=== PATIENT | male | born 2000 ===

== ENCOUNTER 2023-01-09 16:07 | Emergency (ER) | payer SELFPAY ==
--- NOTE | ~2023-01-09 | XR_ITS ---
EXAMINATION: XR KNEE, LEFT CLINICAL INFORMATION: Pain COMPARISON: None available. TECHNIQUE: Four views of the left knee. FINDINGS: There is a bony defect in the medial femoral condyle roughly 1.5 x 0.7 cm concerning for possible osteochondral injury. There is a concern for loose bodies within the joint adjacent to the lateral tibial spine. No dislocation. No significant joint effusion. There are 2 rounded calcified structure abutting the posterior wall of the quadriceps tendon. XR/XR knee LT 4V IMPRESSION: * There is a bony defect in the medial femoral condyle concerning for possible osteochondral injury. * There is a concern for possible loose bodies within the joint. * There are 2 rounded calcified structure abutting the posterior wall of the quadriceps tendon. * Recommend correlation with follow-up MRI.
[2023-01-09 16:31] VITALS: BP 142/89; PULSE 85; RESP 18; TEMP 36.8; O2SAT 100; BMI 28.8
--- NOTE | 2023-01-09 16:36 | ED.EXTPRO ---
HPI - Extremity Problem General Chief complaint: Extremity Injury, Lower <ISAAC Ospina - Last Filed: 01/09/23 16:37> Stated complaint: Leg pain <ISAAC Ospina - Last Filed: 01/09/23 16:37> Time Seen by Provider: 01/09/23 19:26 <ISAAC Ospina - Last Filed: 01/09/23 16:37> Source: patient, RN notes reviewed and environmental field services technician <Luther Waters - Last Filed: 01/09/23 20:06> Mode of arrival: ambulatory <Luther Waters - Last Filed: 01/09/23 20:06> Limitations: language barrier <Luther Waters - Last Filed: 01/09/23 20:06> History of Present Illness HPI Narrative: 22-year-old male presents for evaluation of left knee pain. Patient reports he has had left knee pain for the last 5 or 6 years. this dates back to an injury he sustained while playing baseball he is able to walk but has pain in his left knee with walking the patient moved to the area approximately 2 weeks ago and has no local providers his pain is a 6/10 at worst patient denies any recent injuries <Luther Waters - Last Filed: 01/09/23 20:06> Related Data Home medications: Previous Rx's Medication Instructions Recorded acetaminophen 500 mg tablet 500 mg PO Q6H PRN pain #20 tabs 01/09/23 ibuprofen 600 mg tablet 600 mg PO Q6H PRN pain #20 tabs 01/09/23 <ISAAC Ospina - Last Filed: 01/09/23 16:37> Allergies/Adverse reactions: Allergies Allergy/AdvReac Type Severity Reaction Status Date / Time No Known Allergies Allergy Verified 01/09/23 16:35 <ISAAC Ospina - Last Filed: 01/09/23 16:37> Review of Systems Musculoskeletal: Musculoskeletal: Reports arthralgias, Reports joint swelling and Reports limited range of motion <Luther Waters - Last Filed: 01/09/23 20:06> PMFSH Social History Social History: Social History Advance Directives: No Advance Directives Information Provided: No <ISAAC Ospina - Last Filed: 01/09/23 16:37> Physical Exam Vital Signs: Vital Signs: Last Vital Signs Temp 98.3 F 01/09/23 16:31 Pulse 85 01/09/23 16:31 Resp 18 01/09/23 16:31 BP 142/89 H 01/09/23 16:31 Pulse Ox 100 01/09/23 16:31 O2 Del Method Room Air 01/09/23 16:31 BMI result Body Mass Index 28.8 <ISAAC Ospina - Last Filed: 01/09/23 16:37> Vital Signs: Last Vital Signs Temp 98.3 F 01/09/23 16:31 Pulse 85 01/09/23 16:31 Resp 18 01/09/23 16:31 BP 142/89 H 01/09/23 16:31 Pulse Ox 100 01/09/23 16:31 O2 Del Method Room Air 01/09/23 16:31 BMI result Body Mass Index 28.8 <Luther Waters - Last Filed: 01/09/23 20:06> Const: General: healthy appearing, comfortable, no acute distress, alert and awake <Luther Waters - Last Filed: 01/09/23 20:06> Nutritional Appearance: well nourished <Luther Waters - Last Filed: 01/09/23 20:06> Orientation/consciousness: patient oriented x3 <Luther Waters - Last Filed: 01/09/23 20:06> HEENT: Head: Yes normocephalic and Yes atraumatic <Luther Waters - Last Filed: 01/09/23 20:06> Throat: Yes posterior oropharynx normal <Luther Waters - Last Filed: 01/09/23 20:06> Eyes: Eyelids: Yes eyelids normal <Luther Waters - Last Filed: 01/09/23 20:06> Conjunctivae: conjunctivae normal <Luther Waters - Last Filed: 01/09/23 20:06> Sclerae: sclerae normal <Luther Waters - Last Filed: 01/09/23 20:06> Corneas: corneas normal <Luther Waters - Last Filed: 01/09/23 20:06> Pupils: Equal, round and reactive pupils present <Luther Waters - Last Filed: 01/09/23 20:06> EOM: EOMs intact bilaterally <Luther OChristiano - Last Filed: 01/09/23 20:06> Skin: General skin exam: no rashes or lesions noted and elasticity normal <Lutherronny Bensony - Last Filed: 01/09/23 20:06> Neuro: General: patient oriented x3 <Luther OChristiano - Last Filed: 01/09/23 20:06> Cranial nerves: Yes CN's II-XII intact bilaterally, Yes Equal, round and reactive pupils present and Yes Bilaterally intact EOM present <Luther OStanfield - Last Filed: 01/09/23 20:06> Cognition (Neuro): normal cognition <Luther OStanfield - Last Filed: 01/09/23 20:06> Extrem: Other: no significant abnormality to the left knee with inspection. No edema, no skin changes. The patient is tender to palpation of the anterior left knee. The patellar tendon is palpable. No laxity with anterior drawer testing, negative valgus/varus strain. No calf tenderness, negative Homans sign <Luther OChristiano Last Filed: 01/09/23 20:06> Course Course Course Narrative: RME - 22 y/o [place]an speaking male who just moved here from the [facility] [place] presents to the ER for evaluation of acute on chronic left knee pain. He has had pain for the last 5 years. Worse now. He is able to ambulate, flex and extend the joint. No providers here in the [place]. Plan: XR knee, refer to PCP and ortho <ISAAC Ospina - Last Filed: 01/09/23 16:37> Medical Decision Making Medical Decision Making MDM Narrative: x-ray left knee shows a possible osteochondral injury and possible bony fragment within the left knee joint space. This was discussed with the patient and mother using a personnel quality assurance auditor, he will be referred to orthopedics <Luther Waters - Last Filed: 01/09/23 20:06> Differential Diagnosis Left knee pain Arthritis Knee fracture Banuelos's cyst Patellar tendon rupture <Luther Waters - Last Filed: 01/09/23 20:06> Independent Interpretation I performed an independent interpretation of an: Plain X-Ray (IMPRESSION: * There is a bony defect in the medial femoral condyle concerning for possible osteochondral injury. * There is a concern for possible loose bodies within the joint. * There are 2 rounded calcified structure abutting the posterior wall of the quadriceps tendon. * Recommend co) <Luther Waters - Last Filed: 01/09/23 20:06> Discharge Plan Discharge Clinical Impression: Acute pain of left knee <ISAAC Ospina - Last Filed: 01/09/23 16:37> Patient Disposition: Home, Self-Care <ISAAC Ospina - Last Filed: 01/09/23 16:37> Instructions: Knee Pain (ED) <ISAAC Ospina - Last Filed: 01/09/23 16:37> Additional Instructions: your left knee x-ray was abnormal. There is a possible bony injury and there is a small piece loose body within the joint as well as calcified area of the quadriceps tendon. these findings are likely the explanation for your knee pain. You will need to follow-up with orthopedics at the number provided <ISAAC Ospina - Last Filed: 01/09/23 16:37> Prescriptions: New ibuprofen 600 mg tablet 600 mg PO Q6H PRN (Reason: pain) Qty: 20 0RF acetaminophen 500 mg tablet 500 mg PO Q6H PRN (Reason: pain) Qty: 20 0RF <ISAAC Ospina - Last Filed: 01/09/23 16:37> Referrals: Adam Ramos MD [Physician] - (abnormal left knee x-ray from remote injury) <ISAAC Ospina - Last Filed: 01/09/23 16:37>
== END 2023-01-09 20:16 | disposition home or self-care (01) ==
PROVIDERS: Emergency Provider Internal Medicine
DX: M25.562 Pain in left knee (principal); R93.6 Abnormal findings on diagnostic imaging of limbs
CPT/HCPCS: 73564; 99282; 99283

== ENCOUNTER 2023-02-11 08:36 | Outpatient (REF) | payer MEDICAID, SELFPAY ==
--- NOTE | ~2023-02-11 | XR_ITS ---
EXAMINATION: XR KNEE, LEFT XR KNEE AP STANDING CLINICAL INFORMATION: Bilateral knee pain. COMPARISON: Left knee radiographs dated 01/09/2023. TECHNIQUE: An axial view of the left knee was obtained. AP bilateral standing view of the knees was obtained. FINDINGS: Bony alignment and mineralization are normal. The bilateral lateral and medial joint space compartments and the left patellofemoral compartment are well-maintained. The previously noted osteochondral defect of the left medial femoral condyle is redemonstrated. As well, an osteochondral defect is noted of the right medial femoral condyle. No dislocation is seen. There is no foreign body noted. XR/XR knee LT 1V IMPRESSION: Findings are consistent with osteochondral defects of the bilateral medial femoral condyles. A lateral view of the right knee may be helpful to evaluate for a potential loose body. As well, consider further evaluation with MRI.
--- NOTE | ~2023-02-11 | XR_ITS ---
EXAMINATION: XR KNEE, LEFT XR KNEE AP STANDING CLINICAL INFORMATION: Bilateral knee pain. COMPARISON: Left knee radiographs dated 01/09/2023. TECHNIQUE: An axial view of the left knee was obtained. AP bilateral standing view of the knees was obtained. FINDINGS: Bony alignment and mineralization are normal. The bilateral lateral and medial joint space compartments and the left patellofemoral compartment are well-maintained. The previously noted osteochondral defect of the left medial femoral condyle is redemonstrated. As well, an osteochondral defect is noted of the right medial femoral condyle. No dislocation is seen. There is no foreign body noted. XR/XR knee standing BI IMPRESSION: Findings are consistent with osteochondral defects of the bilateral medial femoral condyles. A lateral view of the right knee may be helpful to evaluate for a potential loose body. As well, consider further evaluation with MRI.
== END 2023-02-11 08:37 | disposition home or self-care (01) ==
LOC: HO.HOSX 08:36
PROVIDERS: Visit Provider Physician Assistant
DX: M23.92 Unspecified internal derangement of left knee (principal)
CPT/HCPCS: 20610; 73560; 73565; 99202

== ENCOUNTER 2023-05-10 18:33 | Outpatient (REF) | payer MEDICAID, SELFPAY ==
--- NOTE | ~2023-05-10 | MR_ITS ---
EXAMINATION: MR KNEE WITHOUT CONTRAST, LEFT CLINICAL INFORMATION: Left knee pain and swelling. Pain with walking. Evaluate for internal derangement. COMPARISON: Left knee radiographs dated 02/11/2023. TECHNIQUE: MRI of the knee without contrast was performed using routine sequences on a high-field scanner. FINDINGS: MENISCI: Medial Meniscus: Intact Lateral Meniscus: Intact LIGAMENTS: Cruciate: Intact Collateral: Intact EXTENSOR MECHANISM: Intact ARTICULAR CARTILAGE/BONE: Patellofemoral Compartment: Intact articular cartilage. Medial Compartment: At the central aspect of the weight-bearing medial femoral condyle there is an osteochondral lesion measuring approximately 3.2 x 1.9 cm (AP x ML) with a depth of 0.8 cm. There is a central osteochondral fragment measuring up to 1.1 x 1.0 cm (AP x ML). There is overlying articular cartilage loss with underlying linear fluid signal and mild subchondral cystic change. Small marginal osteophytes. Lateral Compartment: Intact articular cartilage. JOINT FLUID AND BURSAE: Trace joint effusion. Ossified loose bodies within the suprapatellar joint recess measuring up to 1.1 and 1.1 cm. Posterior ossified loose body adjacent to the posterior cruciate ligament measuring up to 1.0 cm. Ossified loose body posterosuperior to the medial femoral condyle measuring up to 1.1 cm. MR/MR knee LT wo con IMPRESSION: 1. Osteochondral lesion at the central aspect of the weight-bearing medial femoral condyle measuring up to 3.2 x 1.9 cm (AP x ML) with a central osteochondral fragment measuring up to 1.1 cm. Overlying articular cartilage loss with underlying subchondral cystic change. Nondisplaced, unstable central osteochondral fragment measuring up to 1.1 cm. 2. Trace joint effusion with multiple ossified loose bodies measuring up to 1.1 cm. 3. No acute meniscal or ligamentous injury.
== END 2023-05-10 18:34 | disposition home or self-care (01) ==
LOC: HO.MRI 18:33
PROVIDERS: Visit Provider Physician Assistant
DX: M23.92 Unspecified internal derangement of left knee (principal)
CPT/HCPCS: 73721

== ENCOUNTER 2023-06-17 11:49 | Outpatient (AMB) | payer MEDICAID, SELFPAY ==
--- NOTE | 2023-06-17 11:52 | MHC.OFFVIS ---
Intake Vital Signs 06/17/23 11:53 Height 5 ft 5 in Weight 172 lb BMI 28.6 Intake Visit Reasons: ov-Internal derangement of left knee Intake Note: Jennie a 22 year old male who presents today with mother for an MRI review of left knee. Allergies No Known Allergies Allergy (Verified 06/17/23 11:54) HPI ov-Internal derangement of left knee HPI Details 22-year-old male who returns to the office today for an MRI review of left knee. He continues to have pain in his left knee which makes him unable to perform daily activities. [facility] Social History Patient Tobacco Use Status: Never used Tobacco Current occupational status: unemployed Current occupation: right hand dominant Review of Systems Const All systems reviewed & are unremarkable except as noted in HPI and below Physical Exam Vital Signs: BMI result Body Mass Index 28.6 Const General: cooperative, healthy appearing, comfortable, no acute distress, well developed and alert Orientation/consciousness: patient oriented x3 HEENT Head: Yes normal to inspection, Yes normocephalic and Yes atraumatic Eyes General: appearance normal, both eyes and all related structures Resp Effort & Inspection: normal respiratory effort and able to speak in complete sentences Cardio Rate: regular rate Peripheral pulses: Peripheral pulses 2+ throughout GI Palpation (GI): Soft to palpation Skin Lesions: no lesions Rashes: no rashes Neuro General: patient oriented x3 Extrem Other: Left knee skin intact, moderate joint effusion. Tenderness along the medial joint line. ROM full with crepitus. Negative steinmans. No ligamentous laxity. NVI. Results Reviewed Results Reviewed: MRI left knee IMPRESSION: 1. Osteochondral lesion at the central aspect of the weight-bearing medial femoral condyle measuring up to 3.2 x 1.9 cm (AP x ML) with a central osteochondral fragment measuring up to 1.1 cm. Overlying articular cartilage loss with underlying subchondral cystic change. Nondisplaced, unstable central osteochondral fragment measuring up to 1.1 cm. 2. Trace joint effusion with multiple ossified loose bodies measuring up to 1.1 cm. 3. No acute meniscal or ligamentous injury. Assessment & Plan Assessment & Plan (1) Internal derangement of left knee: Code(s): M23.92 - Unspecified internal derangement of left knee Plan We discussed the MRI results. The patient does feels as though he has symptoms which limit his activities when he is not wearing the brace. I offered an appointment with Dr. Ramos to discuss further options which include surgical intervention which they would like to pursue. Therefore, an appointment was made and they will follow-up as planned. Patient Instructions: Scribed for Carlos Alberto Rubio PA-C, by Cuba Schulte medical transport specialist, on 06/17/2023 at 11:30 AM SHERI. Carlos Alberto Lang PA-C, have personally reviewed and agree with the information entered by the scribe. Coding Level of Care Code Est Pt Level 3 (62558) Diagnoses Internal derangement of left knee M23.92
[2023-06-17 11:53] VITALS: BMI 28.6
== END 2023-06-17 11:59 | disposition home or self-care (01) ==
LOC: HO.HOS 11:49
PROVIDERS: Visit Provider Physician Assistant
DX: M23.92 Unspecified internal derangement of left knee (principal)
CPT/HCPCS: 99213

== ENCOUNTER → 2023-06-17 11:49 | Outpatient (BNVA) | payer MEDICAID, SELFPAY | PROVIDERS: Visit Provider Physician Assistant | DX: M23.92 Unspecified internal derangement of left knee (principal) | CPT/HCPCS: 99212 ==

== ENCOUNTER 2023-07-01 13:26 | Outpatient (AMB) | payer MEDICAID, SELFPAY ==
--- NOTE | 2023-07-01 13:29 | MHC.OFFVIS ---
Intake Intake Visit Reasons: Left knee discuss MRI findings ? surgery/Per TM Intake Note: This is a 22 year old male who presents for an MRI review of his left knee. Allergies No Known Allergies Allergy (Verified 07/01/23 13:31) Medication List - Last Reconciled 07/01/23 by Kiya Welch RN acetaminophen 500 mg PO Q6H PRN ibuprofen 600 mg PO Q6H PRN HPI Left knee discuss MRI findings ? surgery/Per TM HPI Details Jennie is a 22 year old man who presents to discuss surgery for his left knee. He has been seen by ISAAC Rubio, who reviewed his MRI, and referred him here to discuss treatment options. He has left knee pain. He describes swelling and pain that prevents him from playing sports or engaging in physical activity. He is here with his mom. They think he may have injured his knee playing baseball many years ago. This problem has been ongoing for years. He describes catching and locking. He describes his knee locking while bent and being unable to straighten it. This occurs regularly. [facility] Social History Patient Tobacco Use Status: Never used Tobacco Current occupational status: unemployed Current occupation: right hand dominant Review of Systems Const All systems reviewed & are unremarkable except as noted in HPI and below Physical Exam Const General: no acute distress, alert and awake Orientation/consciousness: patient oriented x3 HEENT Head: Yes normocephalic and Yes atraumatic Eyes EOM: EOMs intact bilaterally Resp Effort & Inspection: normal respiratory effort and able to speak in complete sentences Cardio Jugular venous distension: no JVD Skin General skin exam: turgor normal Rashes: no rashes Neuro General: patient oriented x3 Extrem Other: Moderate effusion Pain with terminal flexion Psych Appearance: grossly normal Affect: normal affect Attitude: cooperative Results Reviewed Results Reviewed: I personally reviewed relevant MR images 1. Osteochondral lesion at the central aspect of the weight-bearing medial femoral condyle measuring up to 3.2 x 1.9 cm (AP x ML) with a central osteochondral fragment measuring up to 1.1 cm. Overlying articular cartilage loss with underlying subchondral cystic change. Nondisplaced, unstable central osteochondral fragment measuring up to 1.1 cm. 2. Trace joint effusion with multiple ossified loose bodies measuring up to 1.1 cm. 3. No acute meniscal or ligamentous injury. Assessment & Plan Assessment & Plan (1) Osteochondral defect of femoral condyle: Code(s): M95.8 - Other specified acquired deformities of musculoskeletal system Plan: This is a 22 year old man with an osteochondral lesion of the left medial femoral condyle. He has pain with daily activity as well as swelling. He has a loose body in his knee and mechanical symptoms. I recommend knee arthroscopy for removal of loose body. I will also evaluate the cartilage lesion but cartilage repair will not be performed during this procedure. I discussed the risks, benefits, and alternatives including, but not limited to, the risk of pain, infection, stiffness, need for further surgery as well as potential medical complications such as blood clots, pulmonary embolism and cardiac complications. I discussed the recovery timeline and process as well as the importance of PT. Jennie is a good candidate for this surgery, and he wishes to proceed with this decision. He will speak with Myra to schedule this procedure. Plan Scribed for Adam Ramos MD by Gregory Sawant, medical billing specialist, on 07/01/23 at 1:45 PM, EST. Coding Level of Care Code Est Pt Level 4 (82337) Diagnoses Osteochondral defect of femoral condyle M95.8
== END 2023-07-01 13:58 | disposition home or self-care (01) ==
LOC: HO.HOS 13:26
PROVIDERS: Visit Provider Orthopaedic Surgery
DX: M95.8 Other specified acquired deformities of musculoskeletal system (principal); M93.262 Osteochondritis dissecans, left knee
CPT/HCPCS: 99214

== ENCOUNTER → 2023-07-01 13:26 | Outpatient (BNVA) | payer MEDICAID, SELFPAY | PROVIDERS: Visit Provider Orthopaedic Surgery | DX: M95.8 Other specified acquired deformities of musculoskeletal system (principal) | CPT/HCPCS: 99212 ==

== ENCOUNTER 2023-09-19 10:59 | Outpatient (AMB) | payer MEDICAID, SELFPAY ==
--- NOTE | 2023-09-19 11:07 | MHC.OFFVIS ---
Intake Vital Signs 09/19/23 11:08 Height 5 ft 5 in Weight 172 lb BMI 28.6 Intake Visit Reasons: Pre-Lt Knee 10/02 NE Intake Note: Jennie is a 23 year old male who presents today for a pre op appoitnemtn for his left knee 10/02/22 NE. Allergies No Known Allergies Allergy (Verified 09/19/23 11:08) HPI Pre-Lt Knee 10/02 NE HPI Details 23-year-old right hand dominant male, who is American speaking, presents in the office today for his preoperative history and physical exam prior to a left knee arthroscopy to be performed on 10/02/[address] Adam Ramos. Patient has no known allergy history. Patient is currently taking, as follows: -Acetaminophen 500 mg PO Q6H PRN -Ibuprofen 600 mg PO Q6H PRN Patient has no significant medical history. Patient has no known surgical history. [facility] Medical History (Updated 07/15/23 @ 10:45 by Hellen Hernandez RN) No pertinent past medical history Surgical History (Updated 07/15/23 @ 10:45 by Hellen Hernandez RN) No pertinent past surgical history Social History Patient Tobacco Use Status: Never used Tobacco Current occupational status: unemployed Current occupation: right hand dominant Review of Systems Const All systems reviewed & are unremarkable except as noted in HPI and below Physical Exam Vital Signs: BMI result Body Mass Index 28.6 Const General: cooperative, healthy appearing, comfortable, no acute distress, well developed, alert and awake Orientation/consciousness: patient oriented x3 HEENT Head: Yes normal to inspection, Yes normocephalic and Yes atraumatic Eyes General: appearance normal, both eyes and all related structures EOM: EOMs intact bilaterally Neck Neck: Yes normal visual inspection and Yes no lymphadenopathy Resp Effort & Inspection: normal respiratory effort and able to speak in complete sentences Cardio Jugular venous distension: no JVD Rate: regular rate Peripheral pulses: Peripheral pulses 2+ throughout GI Inspection: Yes normal to inspection Palpation (GI): Soft to palpation Skin General skin exam: no rashes or lesions noted Rashes: no rashes Neuro General: patient oriented x3 Extrem Other: Moderate effusion Pain with terminal flexion Left knee skin intact Psych Appearance: grossly normal Mental Status: mental status grossly normal Affect: normal affect Attitude: cooperative Assessment & Plan Assessment & Plan (1) Osteochondral defect of femoral condyle: Code(s): M95.8 - Other specified acquired deformities of musculoskeletal system Plan Mr. Fernandes is a 23-year-old right hand dominant male, who is American speaking, presents in the office today for his preoperative history and physical exam prior to a left knee arthroscopy to be performed on 10/02/[address] Adam Ramos. Patient has no known allergy history. Patient is currently taking, as follows: -Acetaminophen 500 mg PO Q6H PRN -Ibuprofen 600 mg PO Q6H PRN Patient has no significant medical history. Patient has no known surgical history. I discussed in detail the procedure and what to expect pre and post operatively. We discussed the risks, benefits and alternatives to the surgery as well as the rehabilitation course. The risks; which include, but are not limited to infection, bleeding, nerve injury, ongoing pain, swelling, and stiffness, perioperative risk of injury to bones and soft tissues, and blood clots. I have answered all questions and with their understanding they have consented to move forward with a left knee arthroscopy to be performed on 10/02/[address] Adam Ramos. Follow up will be at the post operative appointment on 10/08/2023 at 9:45 am, or sooner if needed. Post operative medications was sent to the pharmacy, Hydrocodone-acetaminophen 5-325 (Percocet) PO Q8H PRN, quantity 21 tabs for 7 days, while in the office today. The patient was instructed that he should obtain the prescription prior to surgery but should not consume until after the procedure; as these should only be taken for post operative pain management. Should the patient take these medications prior to surgery a refill will not be sent to the pharmacy until their scheduled refill date. Medications: New hydrocodone-acetaminophen 5-325 mg Partial Fill upon patient request. 1 tab PO Q8H PRN 21 tabs 0RF pain (scale score 4-6) 7 days Patient Instructions: Scribed for Rhonda Vallecillo PA-C by Jacque Blackburn emergency medical service coordinator, on 09/19/2023 at 11:03 am, EST. Coding Level of Care Code Global (01974) Diagnoses Osteochondral defect of femoral condyle M95.8
[2023-09-19 11:08] VITALS: BMI 28.6
== END 2023-09-19 11:14 | disposition home or self-care (01) ==
PROVIDERS: Visit Provider Physician Assistant
DX: M95.8 Other specified acquired deformities of musculoskeletal system (principal)
CPT/HCPCS: 99024

== ENCOUNTER → 2023-09-19 10:59 | Outpatient (BNVA) | payer MEDICAID, SELFPAY | PROVIDERS: Visit Provider Physician Assistant | DX: M95.8 Other specified acquired deformities of musculoskeletal system (principal) | CPT/HCPCS: 99212 ==

== ENCOUNTER 2023-10-02 08:32 | Day surgery (SDC) | payer MEDICAID, SELFPAY ==
[2023-07-15 10:44] VITALS: BMI 28.6
--- NOTE | 2023-07-16 10:00 | HO.ANESPROP2 ---
HPI - Anesthesia Eval Consult details Narrative: 23yo M for Left Knee Arthroscopy and removal of loose body PMFSH Active Problems Active Problems: All Active Problems (Updated 07/15/23 @ 10:45 by Hellen Hernandez RN) Osteochondral defect of femoral condyle (Acute) Internal derangement of left knee (Acute) Past Medical History Medical History (Updated 07/15/23 @ 10:45 by Hellen Hernandez RN) No pertinent past medical history Surgical History Surgical History (Updated 07/15/23 @ 10:45 by Hellen Hernandez RN) No pertinent past surgical history Social History Social History Patient Tobacco Use Status: Never used Tobacco Current occupational status: unemployed Current occupation: right hand dominant Meds Allergies Allergy/AdvReac Type Severity Reaction Status Date / Time No Known Allergies Allergy Verified 07/01/23 13:31 Exam Exam Date and Time: July 16, 2023 1000 Height,Weight and Vital Signs: Height 5 ft 5 in Weight 78.018 kg Assessment and Plan Assessment Anesthesia Assessment: Chart Reviewed
--- NOTE | 2023-07-17 08:27 | PC.NURSE ---
called patient left message no show
[2023-09-30 07:27] VITALS: BMI 28.6
--- NOTE | 2023-10-01 09:29 | HO.ANESPROP2 ---
HPI - Anesthesia Eval Consult details Narrative: 23yo M for Left Knee Arthroscopy and removal of loose body PMFSH Active Problems Active Problems: All Active Problems (Updated 07/15/23 @ 10:45 by Hellen Hernandez RN) Osteochondral defect of femoral condyle (Acute) Internal derangement of left knee (Acute) Past Medical History Medical History (Updated 07/15/23 @ 10:45 by Hellen Hernandez RN) No pertinent past medical history Surgical History Surgical History (Updated 07/15/23 @ 10:45 by Hellen Hernandez RN) No pertinent past surgical history Social History Social History Patient Tobacco Use Status: Never used Tobacco Advance Directives: No Advance Directives Information Provided: Yes Current occupational status: unemployed Current occupation: right hand dominant Meds Allergies Allergy/AdvReac Type Severity Reaction Status Date / Time No Known Allergies Allergy Verified 09/19/23 11:08 Exam Height,Weight and Vital Signs: Height 5 ft 5 in Weight 78.018 kg Assessment and Plan Assessment Anesthesia Assessment: Chart Reviewed
[2023-10-02 10:32] VITALS: BMI 32.4
[2023-10-02 11:02] VITALS: PULSE 93; RESP 16; TEMP 36.8; O2SAT 99
[2023-10-02] MEDS: Lactated Ringers 1,000 ML 100 ML IVCONT (11:14)
--- NOTE | 2023-10-02 11:39 | MHC.SHP ---
Pre-Procedural Eval Section A - 24 Hr Update-Section A only Date of Service: 10/02/23 The patient is an INPATIENT: No Changes since office visit: No Cold of Flu in the past 2 weeks, No New Medical Problems, No Changes in Medication and No Patient answered all questions The patient has been examined within 24 hours of the surgical procedure. The History & Physical has been completed within 30 days and I have reviewed it.: Yes Section B - Complete if H&P > 30 days Chief Complaint: Other specified acquired deformities of musculoske Allergies: Allergies Allergy/AdvReac Type Severity Reaction Status Date / Time No Known Allergies Allergy Verified 09/19/23 11:08 Plan I have reviewed the history and physical and performed a pertinent physical examination on my patient. No changes have occurred unless specified. Time Spent With Patient Time: Total time managing care of this patient today ____ minutes.
--- NOTE | 2023-10-02 13:34 | ECG_ITS ---
Test Reason : PRE OP Blood Pressure : / mmHG Vent. Rate : 099 BPM Atrial Rate : 099 BPM P-R Int : 122 ms QRS Dur : 086 ms QT Int : 338 ms P-R-T Axes : 052 062 044 degrees QTc Int : 433 ms Sinus rhythm with frequent Premature ventricular complexes Otherwise normal ECG No previous ECGs available Referred By: Almaz Mcginnis Electronically Signed By:SUMAYA OSUNA MD
--- NOTE | 2023-10-02 13:40 | P.CONAN_ITS ---
[facility] Active Problems Active Problems: All Active Problems (Updated 10/02/23 @ 10:43 by Luz Marina Gallegos RN) Osteochondral defect of femoral condyle (Acute) Internal derangement of left knee (Acute) Past Medical History Functional capacity: independent ambulation Family History Family history of problems with anesthesia: No Surgical History Surgical History History of umbilical hernia repair History of Problems with Anesthesia: Yes Social History Social History Patient Tobacco Use Status: Never used Tobacco Use of substances other than those prescribed or required for medical reasons: Yes Are you DNR?: No Advance Directives: No Advance Directives Information Provided: Yes Current occupational status: unemployed Current occupation: right hand dominant Meds Allergies Allergy/AdvReac Type Severity Reaction Status Date / Time No Known Allergies Allergy Verified 09/19/23 11:08 Active Medications: Current Medications Lactated Ringer's (Lr) 1,000 mls @ 100 mls/hr IVCONT .Q10H ANJU Last Admin: 10/02/23 11:14 Dose: 100 mls/hr Exam Height,Weight and Vital Signs: Height 5 ft 5 in Weight 88.451 kg Last Vital Signs Temp 98.2 F 10/02/23 11:02 Pulse 93 10/02/23 11:02 Resp 16 10/02/23 11:02 Pulse Ox 99 10/02/23 11:02 O2 Del Method Room Air 10/02/23 11:02 Airway Mallampati Class: II TM Dist: >3cm Neck ROM: Full Heart: pt. is having PVCs occasionally but at 13:30 I noticed bigeminies frquently. pt. has no CP,N or Vomiting or SOB, only palpitation.12 lead ECG was ordered. Lungs: CTA Assessment and Plan Assessment Anesthesia Assessment: Anesthesia Plan Discussed Final Anesthetic Review Family History of Problems with Anesthesia: No History of Problems with Anesthesia: Yes NPO: Yes ASA Class: II Final Preanesthetic Review: Meds/Allgs Chart Reviewed, Consent Obtained/Reviewed and Anes Risks/Benef Reviewed Patient Risk: Low Procedure Risk: Low Anesthetic Plan Anesthetic Plan: GA Disposition: Standard PACU
--- NOTE | 2023-10-02 13:51 | PC.NURSE ---
ekg performed because patient was having frequent pvcs. denies cp. denies dizziness. md sharif by bedside speaking to patient.
[2023-10-02 14:25] VITALS: BP 127/76; PULSE 107; RESP 16; TEMP 36.1; O2SAT 100
[2023-10-02 14:40] VITALS: BP 120/73; PULSE 101; RESP 16; TEMP 36.6; O2SAT 99
--- NOTE | 2023-10-02 14:50 | HO.POSTANES ---
Post Anesthesia Evaluation Post Anesthesia Evaluation Date of Service: 10/02/23 Vital Signs: Vital Signs Temp Pulse Resp BP Pulse Ox O2 Del Method 10/02/23 14:40 97.9 F 101 H 16 120/73 99 Room Air 10/02/23 14:25 97 F 107 H 16 127/76 100 10/02/23 11:02 98.2 F 93 16 99 Room Air Comments: case cancelled
--- NOTE | 2023-10-02 15:40 | PC.NURSE ---
patient/mother encouraged to seek diet technician registered as per anesthesia and discharged as per md. Ramos.
== END 2023-10-02 15:39 | disposition home or self-care (01) ==
LOC: HO.SSS 08:32
PROVIDERS: Visit Provider Orthopaedic Surgery
PROC: (CPT 29870; principal; 2023-10-02 12:30)
DX: M93.262 Osteochondritis dissecans, left knee (principal); Z53.09 Procedure and treatment not carried out because of other contraindication; I49.3 Ventricular premature depolarization
CPT/HCPCS: 29874; 93005; J0171; J0690; J1100; J2250; J2405; J2704; J2795; J3010

== ENCOUNTER → 2023-10-02 13:34 | Outpatient (BNV) | payer MEDICAID, SELFPAY | PROVIDERS: Visit Provider Internal Medicine Cardiovascular Disease | DX: I49.3 Ventricular premature depolarization (principal) | CPT/HCPCS: 93010 ==

== ENCOUNTER 2024-02-25 14:39 | Emergency (ER) | payer MEDICAID, OTHER, SELFPAY ==
[2024-02-25 14:47] VITALS: BP 137/87; PULSE 74; RESP 20; TEMP 37.2; O2SAT 99; BMI 28.1
--- NOTE | 2024-02-25 14:48 | ED_ITS ---
HPI - General Adult General Chief complaint: General Medical Stated complaint: Sent by Dr for EKG & knee pain Time Seen by Provider: 02/25/24 15:03 Source: patient and cigar bander Mode of arrival: ambulatory Limitations: language barrier History of Present Illness ED Provider: [facility] narrative: Patient is a 23-year-old male with history of osteochondral defect of femoral condyle, internal derangement of left knee referred to the ED by [facility] for EKG. States he was scheduled to have knee surgery in September and was noted to have PVCs and bigeminy. [facility] has not followed up sooner because of insurance issues. Now trying to move forward with his knee surgery and states he needs an EKG, clinic would not take his insurance to do the EKG. He denies any chest pain, palpitations or shortness of breath. Denies any changes in left knee pain. Has not called Dr. Epstein. GALLEGOS complaint: abnormal EKG Onset (ago): month(s) Related Data Previous Rx's ?Medication ?Instructions ?Recorded acetaminophen 500 mg tablet 500 mg PO Q6H PRN pain #20 tabs 01/09/23 ibuprofen 600 mg tablet 600 mg PO Q6H PRN pain #20 tabs 01/09/23 hydrocodone 5 mg-acetaminophen 325 1 tab PO Q8H PRN pain (scale score 09/19/23 mg tablet 4-6) 7 days #21 tabs Allergies Allergy/AdvReac Type Severity Reaction Status Date / Time No Known Allergies Allergy Verified 02/25/24 14:54 Review of Systems Review of Systems: as per hPI Yes all other systems are reviewed and are negative Constitutional: Constitutional: Reports as per HPI [facility] Past Medical History Surgical History History of umbilical hernia repair Social History Social History Comment: case cancelled, no other counts necessary Patient Tobacco Use Status: Never used Tobacco Advance Directives: No Advance Directives Information Provided: No Do you have a plan to hurt others: No Plan Current occupational status: unemployed Current occupation: right hand dominant Physical Exam ED Vital Signs: Vital Signs - 24 hr 02/25/24 14:47 Temperature 98.9 F Pulse Rate 74 Respiratory Rate 20 Blood Pressure 137/87 Pulse Oximetry 99 Oxygen Delivery Method Room Air BMI result Body Mass Index 28.1 Vital signs have been reviewed and appear to be correct. Blood pressure normal. Heart rate normal. Respiratory rate normal. Temperature normal. Oxygen saturation normal. Const General: cooperative, healthy appearing and no acute distress Orientation/consciousness: oriented to person, oriented to place, oriented to time and patient oriented x3 Limitations: no limitations HENMT Head: Yes normocephalic and Yes atraumatic Ears: external ears normal General nose exam: Normal external nose present Face and sinus: Yes face symmetric Mouth: oropharynx normal and moist mucous membranes Throat: Yes uvula midline Eyes Pupils: Equal, round and reactive pupils present Neck Neck: Yes normal visual inspection and Yes supple Resp Effort & Inspection: normal respiratory effort and able to speak in complete sentences Auscultation: clear to auscultation bilaterally Cardio Rate: regular rate Rhythm: regular rhythm Heart sounds: S1 normal heart sound present and S2 normal heart sound present GI Palpation (GI): Soft to palpation and nontender Auscultation: normoactive bowel sounds General: Yes no CVA tenderness Back/Spine/Pelvis Back: no CVA tenderness Skin General skin exam: elasticity normal and turgor normal Neuro General: oriented to person, oriented to place, oriented to time, patient oriented x3, moves all extremities, no focal motor deficits and CN's II-XI intact bilaterally Cranial nerves: Yes Equal, round and reactive pupils present Cognition (Neuro): normal cognition Extrem General: Yes full ROM, Yes no pedal edema and Yes no calf tenderness Psych Mental Status: mental status grossly normal Affect: normal affect Thought process: Normal thought process present Medical Decision Making Medical Decision Making MDM Narrative: Patient is a 23-year-old male with history of osteochondral defect of femoral condyle, internal derangement of left knee referred to the ED by [facility] for EKG. On exam patient is awake, A+Ox3, VS WNL, afebrile, normal neurological exam without focal deficits, physical exam findings as above, without current complaints other than left knee pain which is chronic. Case discussed with Dr. Wayne, attending MD who advised to order EKG and refer patient to orthopedic office. Patient updated on plan and return precautions and is in agreement. Entire encounter interpreted by in-person planogrammer. Differential Diagnosis Differential Diagnoses: The differential diagnosis associated with the presentation includes cardiac arrhythmia, left knee pain Independent Interpretation I performed an independent interpretation of an: EKG (Normal sinus rhythm with sinus arrhythmia, rate 71 beats per minute, normal VT interval and QTC) External Record Review External record reviewed: Inpatient record, Office record and Outpatient record Discharge Plan Discharge Clinical Impression: Chronic pain of left knee Patient Disposition: Home, Self-Care Additional Instructions: You presented to the emergency department today for an EKG. Your EKG today showed normal sinus rhythm. Please follow-up with the orthopedic office. Return to the emergency department any new or worsening symptoms. Prescriptions: No Action ibuprofen 600 mg tablet 600 mg PO Q6H PRN (Reason: pain) Qty: 20 0RF acetaminophen 500 mg tablet 500 mg PO Q6H PRN (Reason: pain) Qty: 20 0RF hydrocodone-acetaminophen 5-325 mg tablet 1 tab PO Q8H PRN (Reason: pain (scale score 4-6)) 7 Days Qty: 21 0RF Rx Instructions: Partial Fill upon patient request. Referrals: [facility] [place] [facility] [Provider Group] Print Language: Indian
--- NOTE | 2024-02-25 14:56 | ECG_ITS ---
Test Reason : ABNORMAL EKG IN SEP Blood Pressure : / mmHG Vent. Rate : 071 BPM Atrial Rate : 071 BPM P-R Int : 112 ms QRS Dur : 084 ms QT Int : 350 ms P-R-T Axes : 056 054 044 degrees QTc Int : 380 ms Normal sinus rhythm with sinus arrhythmia Normal ECG When compared with ECG of 02-OCT-2023 13:40, Premature ventricular complexes are no longer Present QT has shortened Referred By: Cynthia Diamond Electronically Signed By:SUMAYA OSUNA MD
[2024-02-25 15:33] VITALS: BP 135/76; PULSE 68; RESP 18; TEMP 37; O2SAT 100
== END 2024-02-25 15:34 | disposition home or self-care (01) ==
PROVIDERS: Emergency Provider Emergency Medicine
DX: M25.562 Pain in left knee (principal); R94.31 Abnormal electrocardiogram [ECG] [EKG]
CPT/HCPCS: 93005; 99283

== ENCOUNTER → 2024-02-25 14:56 | Outpatient (BNV) | payer OTHER, SELFPAY | PROVIDERS: Emergency Provider Emergency Medicine; Visit Provider Internal Medicine Cardiovascular Disease | DX: I49.9 Cardiac arrhythmia, unspecified (principal) | CPT/HCPCS: 93010 ==

== ENCOUNTER 2024-03-24 12:33 | Outpatient (AMB) | payer OTHER, SELFPAY ==
--- NOTE | 2024-03-24 12:10 | A.OFFPC_ITS ---
Vital Signs 03/24/24 12:11 Height 5 ft 8 in Weight 178 lb BMI 27.1 BP 108/64 Blood Pressure Location Rt brachial Position Sitting Pulse 67 Pulse Source Pulse Oximeter Pulse Oximetry (%) 99 Oxygen Delivery Method Room Air Intake Visit Reasons: Establish Care Intake Note: Patient is here to establish care and had concerns for his left knee and his need for surgery. Patient reports he was playing baseball and injured his knee during the sport. Patient was told he would need surgery for his knee by a orthopedics, but he would need a referral for this from his primary care provider. He was recommended to establish care with [facility]. Garbage Pick Up Man Required: Yes Garbage Pick Up Man Language: Health Claims Examiner Name: NATALY Information Interpreted: non-clinical & clinical Accompanied by: Self / Same As Patient Allergies No Known Allergies Allergy (Verified 03/24/24 12:24) Tobacco use date assessed: 03/24/24 Dental Screening Dental Screen Date: 03/24/24 Did you have a dental visit in the last 12 months?: No Did you have a dental problem in the last 6 months where you did not have access to dental care?: No Was dental information given to patient?: Yes HPI HPI Comments History of Present Illness Details 23 year old male with a past medical his tory of chronic knee pain presenting to establish [facility]. Patient has been following with orthopedics for left knee pain. He underwent left knee arthroscopy at [facility] earlier this year. He continues to require follow up. He needs insurance authorization for his visits Has no other concerns today. Denies any other chronic medical conditions. ROS CONSTITUTIONAL: Denies weight loss, fever and chills. HEENT: Denies changes in vision and hearing. RESPIRATORY: Denies SOB and cough. CV: Denies palpitations and CP GI: Denies abdominal pain, nausea, vomiting and diarrhea. : Denies dysuria and urinary frequency. MSK: Denies new myalgia and joint pain. SKIN: Denies rash and pruritus. NEUROLOGICAL: Denies headache PSYCHIATRIC: Denies recent changes in mood. PHYSICAL EXAM: GENERAL: Alert and oriented x 3. NAD EYES: EOMI. Anicteric. HENT: Moist mucous membranes. No scleral icterus. No cervical lymphadenopathy. LUNGS: Clear to auscultation bilaterally. CARDIOVASCULAR: Regular rate and rhythm. No murmur. No JVD. ABDOMEN: Soft, non-tender +bs EXTREMITIES: No edema. Non-tender. SKIN: No rashes or lesions. Warm. NEUROLOGIC: No focal neurological deficits. CN II-XII grossly intact PSYCHIATRIC: Cooperative. Appropriate mood and affect [facility] Medical History Internal derangement of left knee Osteochondral defect of femoral condyle Surgical History History of umbilical hernia repair Family History Other Family history unknown Social History Household Members: Family Housing: Apartment Alcohol intake: never Patient Tobacco Use Status: Former Tobacco user e-Cigarette/Vaping Use: Never Used Substance Use Type: Marijuana service: No Current occupational status: employed Current occupation: right hand [email or web address] Cognitive needs: No Hearing needs: No Vision needs: No Questionnaire PHQ-9 Over the last 2 weeks, how often have you been bothered by any of the following problems? 1. Little interest or pleasure in doing things: not at all 2. Feeling down, depressed, or hopeless: not at all 3. Trouble falling or staying asleep, or sleeping too much: several days 4. Feeling tired or having little energy: more than half the days 5. Poor appetite or overeating: more than half the days 6. Feeling bad about yourself - or that you are a failure or have let yourself or your family down: not at all 7. Trouble concentrating on things, such as reading the newspaper or watching television: not at all 8. Moving or speaking so slowly that other people could have noticed. Or the opposite - being so fidgety or restless that you have been moving around a lot more than usual: not at all 9. Thoughts that you would be better off or of hurting yourself in some way: not at all Total score: 5 Depression Screening Interpretation: Positive Depression Screening Follow-up: Declines treatment Depression Screening Done: Yes 51827 - PHQ-9 Billing: Yes Source: Developed by Drs. Darin Arredondo, Jordyn B.Clifton Smith and colleagues, with an educational get from [employer]. Thrive Questionnaire Date Thrive assessed: 03/24/24 I am a: Patient What is your living situation today?: I have a steady place to live Within the past 12 months, did the food you bought not last and you didn't have the money to get more?: Sometimes True Within the past 12 months, did you worry whether your food would run out before you got money to buy more?: Sometimes True Do you have trouble paying for medicines?: No Do you have trouble getting transportation to medical appointments?: No Do you have trouble paying your heating and electricity bill?: No Do you have trouble taking care of your child, family member or friend?: No Do you have trouble with day-to-day activities such as bathing, preparing meals, shopping, managing finances, etc.?: No Are you currently unemployed and looking for a job?: No Are you interested in more education?: Yes Please select the resources that you would like help with: Food, Transportation and Education Currently or been in a relationship where the following occur: No concerns reported THRIVE Score: 2 AUDIT C Alcohol Use Questionnaire (AUDIT-C) 1. How often do you have a drink containing alcohol?: Never 3. How often do you have six or more drinks on one occasion?: Never Total Score: 0 ELIANA-7 AMB Questionnaire ELIANA-7 Date ELIANA - 7 assessed: 03/24/24 Feeling nervous, anxious, or on edge: 0 = Not at all Not being able to stop or control worryin = Not at all Worrying too much about different things: 1 = Several days Trouble relaxin = Not at all Being so restless that it is hard to sit still: 0 = Not at all Becoming easily annoyed or irritable: 0 = Not at all Feeling afraid as if something awful might happen: 0 = Not at all Total ELIANA-7 score (0-4 normal; 5-9 mild; 10-14 moderate; 15-21 severe): 1 Source: Developed by Drs. Darin Arredondo, Clifton Romero and colleagues, with an educational get from [employer]. ELIANA-7 Assessment Billing ELIANA-7 Assessment Tool: ELIANA-7 Assessment 55199 Physical exam (Primary Care) Vital Signs: Last Vital Signs Pulse 67 03/24/24 12:11 BP 108/64 03/24/24 12:11 Pulse Ox 99 03/24/24 12:11 Oxygen Delivery Method Room Air 03/24/24 12:11 BMI result Body Mass Index 27.1 Tobacco/Smoking Status: Tobacco use Status Tobacco use date assessed 03/24/24 03/24/24 12:30 Patient Tobacco Use Status Former Tobacco user 03/24/24 12:30 e-Cigarette/Vaping Use Never Used 03/24/24 12:30 Depression Screening Interpretation: Positive Depression Screening Follow-up: Declines treatment Currently or been in a relationship where the following occur: No concerns reported Assessment and Plan Assessment & Plan (1) Internal derangement of left knee: Code(s): M23.92 - Unspecified internal derangement of left knee Plan: continue ortho follow up. Referral placed (2) Establishing care with new doctor, encounter for: Code(s): Z76.89 - Persons encountering health services in other specified circumstances Plan: 23 y/o to establish care. past medical, surgical, social and family history reviewed. Chart updated Orders: Referrals Orthopedics Referral M23.92 - Unspecified internal derangement of left knee, M95.8 - Other specified acquired deformities of musculoskeletal system Coding Level of Care Code New Pt Level 3 (44738) Diagnoses Internal derangement of left knee M23.92 Establishing care with new doctor, encounter for Z76.89 Additional Codes ELIANA-7 Assessment Billing - ELIANA-7 Assessment Tool: ELIANA-7 Assessment 18395 ([id number])
[2024-03-24 12:11] VITALS: BP 108/64; PULSE 67; O2SAT 99; BMI 27.1
== END 2024-03-24 12:50 | disposition home or self-care (01) ==
LOC: HO.HMGFM 12:33
PROVIDERS: Visit Provider Internal Medicine
DX: M23.92 Unspecified internal derangement of left knee (principal); Z76.89 Persons encountering health services in other specified circumstances
CPT/HCPCS: 99203

== ENCOUNTER 2024-05-10 14:06 | Emergency (ER) | payer OTHER, SELFPAY ==
--- NOTE | ~2024-05-10 | XR_ITS ---
EXAMINATION: XR ANKLE, RIGHT CLINICAL INFORMATION: Pain injury COMPARISON: None available. TECHNIQUE: AP, lateral, and mortise views of the right ankle. FINDINGS: No fracture. Alignment is anatomic. No erosions. Joint spaces are maintained. Soft tissue swelling over the lateral malleolus. XR/XR ankle RT min 3V IMPRESSION: Soft tissue swelling over the lateral malleolus. Electronically signed by: America Torres MD 05/10/2024 03:29 PM EDT
--- NOTE | ~2024-05-10 | XR_ITS ---
EXAMINATION: XR FOOT, RIGHT CLINICAL INFORMATION: Pain COMPARISON: None available. TECHNIQUE: AP, lateral, and oblique views of the right foot. FINDINGS: The bones and soft tissues are normal. No fracture. Alignment is anatomic. Joint spaces are maintained. XR/XR foot RT min 3V IMPRESSION: Normal right foot. Electronically signed by: America Torres MD 05/10/2024 03:28 PM EDT RP
[2024-05-10 14:07] VITALS: BP 133/76; PULSE 100; RESP 19; TEMP 36.6; O2SAT 99; BMI 26.8
--- NOTE | 2024-05-10 14:10 | ED.GENADULT ---
HPI - General Adult General Chief complaint: Extremity Injury, Lower Stated complaint: R ankle pain Time Seen by Provider: 05/10/24 15:01 Source: patient, RN notes reviewed and old records reviewed Mode of arrival: ambulatory History of Present Illness ED Provider: Christi Pelayo PA-C [facility] narrative: 23-year-old male no significant past medical history presenting to the ED complaining of right ankle pain s/p twisting while jumping on trampoline yesterday. Has been ambulatory with pain. Denies injury to the area, head trauma or LOC Related Data Previous Rx's ?Medication ?Instructions ?Recorded acetaminophen 500 mg tablet 500 mg PO Q6H PRN pain #20 tabs 01/09/23 ibuprofen 600 mg tablet 600 mg PO Q6H PRN pain #20 tabs 01/09/23 hydrocodone 5 mg-acetaminophen 325 1 tab PO Q8H PRN pain (scale score 09/19/23 mg tablet 4-6) 7 days #21 tabs Allergies Allergy/AdvReac Type Severity Reaction Status Date / Time No Known Allergies Allergy Verified 05/10/24 14:09 Review of Systems Review of Systems: Yes all other systems are reviewed and are negative Constitutional: Constitutional: Reports as per [facility] Past Medical History Attestation statement: The following information was validated with the patient. 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 Surgical History History of umbilical hernia repair Family History Family History Other Family history unknown Social History Social History Household Members: Family Housing: Apartment Alcohol intake: never Patient Tobacco Use Status: Former Tobacco user e-Cigarette/Vaping Use: Never Used Substance Use Type: Marijuana Advance Directives: No Advance Directives Information Provided: No service: No Current occupational status: employed Current occupation: right hand dominant//[employer] Cognitive needs: No Hearing needs: No Vision needs: No Physical Exam ED Vital Signs: Vital Signs - 24 hr 05/10/24 14:07 05/10/24 15:56 Temperature 98 F 98.0 F Pulse Rate 100 79 Respiratory Rate 19 17 Blood Pressure 133/76 130/77 Pulse Oximetry 99 100 Oxygen Delivery Method Room Air Room Air BMI result Body Mass Index 26.8 Const General: cooperative, healthy appearing and no acute distress Orientation/consciousness: patient oriented x3 Limitations: no limitations HENMT Head: Yes normal to inspection and Yes atraumatic Ears: hearing grossly normal bilaterally General nose exam: Normal external nose present Face and sinus: Yes normal facial exam Eyes General: appearance normal, both eyes and all related structures EOM: EOMs intact bilaterally Neck Neck: Yes normal visual inspection and Yes no meningeal signs Resp Effort & Inspection: normal respiratory effort and no respiratory distress Cardio Rate: regular rate Skin Rashes: no rashes Wounds: no wounds Neuro General: patient oriented x3, tone normal and no meningeal signs Cranial nerves: Yes CN's II-XII intact bilaterally Gait exam (Neuro): Normal gait present Extrem Other: Right ankle > lateral malleolus with appreciable swelling. Diffusely tender to palpation. ROM intact with some discomfort. Neurovascular intact distally. No erythema/warmth or crepitus. Knee nontender Course Course Course Narrative: RME performed by Perla Mckinney PA-C. Patient is a 23 year old assigned male at presenting to the emergency department with right ankle pain. Patient states that he was jumping on a trampoline at [facility] when he landed on his right ankle wrong. Detailed physical exam and review of systems are deferred to the dance artist. Imaging ordered. Patient placed back in the waiting room pending room availability and results. XR foot RT min 3V IMPRESSION: Normal right foot. XR ankle RT min 3V IMPRESSION: Soft tissue swelling over the lateral malleolus. > Zaki wrap applied for comfort and stability. Results discussed with patient including worrisome signs and symptoms and strict return precautions, and when to return to the emergency department. They verbalized understanding and feel safe for discharge at this time. Medical Decision Making Medical Decision Making MDM Narrative: 23-year-old male no significant past medical history presenting to the ED complaining of right ankle pain s/p twisting while jumping on trampoline yesterday. On exam vital signs stable, NAD, nontoxic appearing, physical exam as above. Concern for sprain vs fracture. No evidence of septic joint/arthritis Plan for x-ray Please refer to course for remaining clinical decision making, interpretation of labs/imaging results, and discussions with consultants and/or family members. Differential Diagnosis Differential Diagnoses: The differential diagnosis associated with the presentation includes As above Independent Interpretation I performed an independent interpretation of an: Plain X-Ray Radiology Impression Discussion of test interpretation with radiology: I have reviewed the radiologist's reading. External Record Review External record reviewed: Inpatient record, Office record, Outpatient record, Prior outpatient labs, Prior outpatient radiology, Primary care record and Outside ED record Tests considered The following testing was considered but not selected: As above Prescription Management I considered prescription management with: Pain Medication Discharge Plan Discharge Clinical Impression: Ankle sprain and strain Patient Disposition: Home, Self-Care Instructions: Ankle Sprain (DC) Additional Instructions: You sprain your ankle. X-rays do not show fracture Wear Zaki wrap for compression and stability Ice Elevate Take Tylenol and Motrin Follow-up with her doctor Return to ED if symptoms persist or worsen/pain is unbearable Prescriptions: No Action ibuprofen 600 mg tablet 600 mg PO Q6H PRN (Reason: pain) Qty: 20 0RF acetaminophen 500 mg tablet 500 mg PO Q6H PRN (Reason: pain) Qty: 20 0RF hydrocodone-acetaminophen 5-325 mg tablet 1 tab PO Q8H PRN (Reason: pain (scale score 4-6)) 7 Days Qty: 21 0RF Rx Instructions: Partial Fill upon patient request. Referrals: Physician,Unknown J [Primary Care Provider] - Stand Alone Forms: Work/School Release Print Language: Macedonian
[2024-05-10 15:56] VITALS: BP 130/77; PULSE 79; RESP 17; TEMP 36.7; O2SAT 100
[2024-05-10 17:55] VITALS: BP 130/77; PULSE 79; RESP 17; TEMP 36.7; O2SAT 100
== END 2024-05-10 17:56 | disposition home or self-care (01) ==
PROVIDERS: Emergency Provider Emergency Medicine
DX: S93.401A Sprain of unspecified ligament of right ankle, initial encounter (principal); M79.671 Pain in right foot; X50.1XXA Overexertion from prolonged static or awkward postures, initial encounter; Y93.39 Activity, other involving climbing, rappelling and jumping off; Y92.89 Other specified places as the place of occurrence of the external cause; Y99.8 Other external cause status
CPT/HCPCS: 73610; 73630; 99283

== ENCOUNTER 2024-05-17 13:50 | Emergency (ER) | payer OTHER, SELFPAY ==
--- NOTE | 2024-05-17 13:59 | ED.LOWEXIN ---
HPI - Extremity Injury (Lower) General Stated Complaint: r ankle swelling Source: patient Mode of arrival: ambulatory Limitations: no limitations History of Present Illness HPI Narrative: Patient is a 23-year-old male presents emergency department for evaluation of right lateral ankle pain. Reports onset 1 week ago. Injured it while on a trampoline. Followed up with his primary care doctor states he had an x-ray done which revealed no evidence of a fracture. Has been taking Tylenol with some relief but the pain continues. No numbness. No tingling. Cold sensation to the foot. Related Data Previous Rx's ?Medication ?Instructions ?Recorded acetaminophen 500 mg tablet 500 mg PO Q6H PRN pain #20 tabs 01/09/23 ibuprofen 600 mg tablet 600 mg PO Q6H PRN pain #20 tabs 01/09/23 hydrocodone 5 mg-acetaminophen 325 1 tab PO Q8H PRN pain (scale score 09/19/23 mg tablet 4-6) 7 days #21 tabs Allergies Allergy/AdvReac Type Severity Reaction Status Date / Time No Known Allergies Allergy Verified 05/17/24 14:06 Review of Systems Review of Systems: Yes all other systems are reviewed and are negative [facility] Past Medical History Attestation statement: The following information was validated with the patient. 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 No acute distress.?Normal affect.?? CVS: Heart sounds normal. Normal heart rate and rhythm.? Pulses normal.?? Respiratory: No respiratory distress.? Lung sounds clear to auscultation bilaterally?? Skin: Skin warm and dry.? Normal skin color.? Extremities: Localized swelling to the right lateral malleolus. No erythema. No warmth. 2+ DP/PT pulse bilaterally. Mildly decreased AROM. No calf ttp? Neuro: Moves all extremities spontaneously. Sensation intact bilaterally. Ambulates with normal steady gait. Course Course Course Narrative: Patient is a 23-year-old male presents emergency department for evaluation of right lateral ankle pain. Reports onset 1 week ago. Injured it while on a trampoline. Followed up with his primary care doctor states he had an x-ray done which revealed no evidence of a fracture. Has been taking Tylenol with some relief but the pain continues. Medical Decision Making Medical Decision Making MDM Narrative: Patient is a 23-year-old male presenting for evaluation of traumatic right ankle pain as per HPI. On review he had outpatient x-rays 05/10/2024 revealing soft tissue swelling over the lateral malleolus without evidence of fracture or dislocation. No fracture to the foot. Extremities neurovascularly intact distally. Full range of motion. Ambulatory with a normal steady gait. Unlikely to have occult fracture, do not see clinical indication to repeat XR at this time. Symptoms consistent with a sprain. Will provide an Aircast as he states pain increases with walking. Discussed the use of conservative treatment rest, ice, acetaminophen/ibuprofen and outpatient follow-up with primary care provider. Patient was advised that in some cases symptoms associated with an ankle sprain may last up to 6 weeks. Differential Diagnosis Differential Diagnoses: The differential diagnosis associated with the presentation includes (See narrative above) External Record Review External record reviewed: Prior outpatient radiology (See narrative above) Tests considered The following testing was considered but not selected: Repeat XR deferred, see narrative above Prescription Management I considered prescription management with: Pain Medication Discharge Plan Discharge Clinical Impression: Right ankle sprain Patient Disposition: Home, Self-Care Instructions: Ankle Sprain (ED), R.I.C.E. Treatment (ED) Additional Instructions: You can take ibuprofen 200 mg, 3 tablets (600mg) every 6-8 hours as needed for pain, in addition to Tylenol 500 mg, 2 tablets (1,000mg) every 4-6 hours as needed for pain, but not to exceed 3 doses daily (3,000mg).? Use Aircast has provided when walking to facilitate decreasing pain. As discussed, for some people symptoms associated with an ankle sprain can last up to 6 weeks. Please be sure to rest, apply ice to the area for 10-15 minutes 3-4 times daily, elevate your leg. Follow-up with primary care doctor. Prescriptions: No Action ibuprofen 600 mg tablet 600 mg PO Q6H PRN (Reason: pain) Qty: 20 0RF acetaminophen 500 mg tablet 500 mg PO Q6H PRN (Reason: pain) Qty: 20 0RF hydrocodone-acetaminophen 5-325 mg tablet 1 tab PO Q8H PRN (Reason: pain (scale score 4-6)) 7 Days Qty: 21 0RF Rx Instructions: Partial Fill upon patient request. Referrals: Physician,Unknown J [Primary Care Provider] - Print Language: Estonian
[2024-05-17 14:05] VITALS: BP 138/79; PULSE 84; RESP 14; TEMP 36.9; O2SAT 99; BMI 27.8
== END 2024-05-17 14:40 | disposition home or self-care (01) ==
PROVIDERS: Emergency Provider Emergency Medicine
DX: S93.401A Sprain of unspecified ligament of right ankle, initial encounter (principal); M25.571 Pain in right ankle and joints of right foot; Y93.44 Activity, trampolining; Y92.89 Other specified places as the place of occurrence of the external cause; Y99.8 Other external cause status
CPT/HCPCS: 99281; 99283

== ENCOUNTER 2024-06-01 12:15 | Outpatient (AMB) | payer OTHER, SELFPAY ==
--- NOTE | 2024-06-01 13:02 | MHC.PC.OV ---
Vital Signs 06/01/24 13:16 Height 5 ft 7 in Weight 176 lb 8 oz BMI 27.6 BP 112/74 Blood Pressure Location Lt brachial Position Sitting Pulse 64 Pulse Source Pulse Oximeter Pulse Oximetry (%) 99 Oxygen Delivery Method Room Air Intake Visit Reasons: LT KNEE PAIN Intake Note: Pt presents to the office today for left knee pain that started years ago. 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 He underwent left knee arthroscopy at [facility] earlier this year. He continues to require follow up. He needs insurance authorization for his visits. He was referred at his last visit-looks like they were waiting on preoperative risk assessment to schedule surgery No history of CAD, chest pain, shortness of breath, asthma/copd or sleep apnea No known diabetes, no CKD Can walk at least one mile, climb 10 flights of stairs He has had anesthesia without complication in the past ROS CONSTITUTIONAL: Denies weight loss, fever and chills. HEENT: Denies changes in vision and hearing. RESPIRATORY: Denies SOB and cough. CV: Denies palpitations and CP GI: Denies abdominal pain, nausea, vomiting and diarrhea. : Denies dysuria and urinary frequency. MSK: Denies new myalgia and joint pain. SKIN: Denies rash and pruritus. NEUROLOGICAL: Denies headache PSYCHIATRIC: Denies recent changes in mood. PHYSICAL EXAM: GENERAL: Alert and oriented x 3. NAD EYES: EOMI. Anicteric. HENT: Moist mucous membranes. No scleral icterus. No cervical lymphadenopathy. LUNGS: Clear to auscultation bilaterally. CARDIOVASCULAR: Regular rate and rhythm. ABDOMEN: Soft, non-tender +bs EXTREMITIES: No edema. Non-tender. SKIN: No rashes or lesions. Warm. NEUROLOGIC: No focal neurological deficits. CN II-XII grossly intact PSYCHIATRIC: Cooperative. 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 1. Little interest or pleasure in doing things: not at all 2. Feeling down, depressed, or hopeless: not at all 3. Trouble falling or staying asleep, or sleeping too much: not at all 4. Feeling tired or having little energy: several days 5. Poor appetite or overeating: not at all 6. Feeling bad about yourself - or that you are a failure or have let yourself or your family down: not at all 7. Trouble concentrating on things, such as reading the newspaper or watching television: not at all 8. Moving or speaking so slowly that other people could have noticed. Or the opposite - being so fidgety or restless that you have been moving around a lot more than usual: not at all 9. Thoughts that you would be better off or of hurting yourself in some way: not at all Total score: 1 Source: Developed by Drs. Darin Arredondo, Jordyn Castro, Clifton Her and colleagues, with an educational get from [employer]. Thrive Questionnaire Date Thrive assessed: 03/24/24 I am a: Patient What is your living situation today?: I do not have a steady places to live I am temporarily staying with others Within the past 12 months, did the food you bought not last and you didn't have the money to get more?: Sometimes True Within the past 12 months, did you worry whether your food would run out before you got money to buy more?: Sometimes True Do you have trouble paying for medicines?: No Do you have trouble getting transportation to medical appointments?: Yes Do you have trouble paying your heating and electricity bill?: No Do you have trouble taking care of your child, family member or friend?: No Do you have trouble with day-to-day activities such as bathing, preparing meals, shopping, managing finances, etc.?: No Are you currently unemployed and looking for a job?: Yes Are you interested in more education?: Yes Please select the resources that you would like help with: Housing/[facility] and Job search/training Currently or been in a relationship where the following occur: No concerns reported THRIVE Score: 4 AUDIT C Alcohol Use Questionnaire (AUDIT-C) 1. How often do you have a drink containing alcohol?: Never Total Score: 0 ELIANA-7 AMB Questionnaire ELIANA-7 Date ELIANA - 7 assessed: 03/24/24 Feeling nervous, anxious, or on edge: 0 = Not at all Not being able to stop or control worryin = Not at all Worrying too much about different things: 0 = Not at all Trouble relaxin = Not at all Being so restless that it is hard to sit still: 0 = Not at all Becoming easily annoyed or irritable: 0 = Not at all Feeling afraid as if something awful might happen: 0 = Not at all Total ELIANA-7 score (0-4 normal; 5-9 mild; 10-14 moderate; 15-21 severe): 0 Source: Developed by Drs. Darin Arredondo, Jordyn Castro, Clifton Her and colleagues, with an educational get from [employer]. Physical exam (Primary Care) Vital Signs: Last Vital Signs Pulse 64 06/01/24 13:16 BP 112/74 06/01/24 13:16 Pulse Ox 99 06/01/24 13:16 Oxygen Delivery Method Room Air 06/01/24 13:16 BMI result Body Mass Index 27.6 Tobacco/Smoking Status: Tobacco use Status Tobacco use date assessed 03/24/24 06/01/24 13:03 Patient Tobacco Use Status Never used Tobacco 06/01/24 13:21 e-Cigarette/Vaping Use Never Used 06/01/24 13:03 PHQ-9: PHQ-9 Score PHQ-9: Total score 1 06/01/24 13:46 Thrive Assessment: Date of Thrive Assessment Date Thrive assessed 03/24/24 06/01/24 13:03 Currently or been in a relationship where the following occur: No concerns reported Assessment and Plan Assessment & Plan (1) Preoperative cardiovascular examination: Code(s): Z01.810 - Encounter for preprocedural cardiovascular examination Plan: 23 year old male for preop cardiovascular exam RCRI 0-Class risk I EKG reviewed, METS>/=4. Assuming labs are normal, patient may proceed to surgery without further cardiac work up. Orders: Orders Partial Thromboplastin Time Today Z01.810 - Encounter for preprocedural cardiovascular examination Complete Blood Count Auto Diff Today Z01.810 - Encounter for preprocedural cardiovascular examination Comprehensive Met. Panel Today Z01.810 - Encounter for preprocedural cardiovascular examination Prothrombin Time INR Today Z01.810 - Encounter for preprocedural cardiovascular examination Coding Level of Care Code Est Pt Level 4 (49203) Complex EM visit Add On G2211 Diagnoses Preoperative cardiovascular examination Z01.810
[2024-06-01 13:16] VITALS: BP 112/74; PULSE 64; O2SAT 99; BMI 27.6
== END 2024-06-01 14:31 | disposition home or self-care (01) ==
PROVIDERS: Visit Provider Internal Medicine
DX: Z01.810 Encounter for preprocedural cardiovascular examination (principal)

== ENCOUNTER → 2024-06-01 12:15 | Outpatient (BNVA) | payer OTHER, SELFPAY | PROVIDERS: Visit Provider Internal Medicine | DX: Z01.810 Encounter for preprocedural cardiovascular examination (principal) | CPT/HCPCS: 96127; 99212 ==

== ENCOUNTER 2024-06-02 14:45 | Outpatient (REF) | payer OTHER, SELFPAY ==
[2024-06-02 17:55] LABS: MANUAL DIFF FLAG NO
[2024-06-02 18:04] LABS: INTERNATIONAL NORM RATIO 1.1 (0.9-1.1); Prothrombin Time 13.1 SEC (10.9-12.4)
[2024-06-02 18:07] LABS: Partial Thromboplastin Time 37.3 SEC (26.0-36.8)
[2024-06-02 18:17] LABS: Alanine Aminotransferase 14 U/L (0-40); Albumin Level 4.7 g/dL (3.5-5.0); Alkaline Phosphatase 68 U/L (39-117); Anion Gap 12 (12-20); Aspartate Amino Transferase 16 U/L (5-37); Bilirubin Total 0.5 mg/dL (0.0-1.0); Blood Urea Nitrogen 15 mg/dL (9-16); Calcium 9.7 mg/dL (8.4-10.2); Carbon Dioxide 24 mmol/L (22-29); Chloride 108 mmol/L (96-108); Estimated Glomerular Filt Rate > 60; Glucose Random 89 mg/dL (60-115); Potassium 4.3 mmol/L (3.3-5.1); Sodium 140 mmol/L (135-145); Total Protein 7.8 g/dL (6.5-8.0)
[2024-06-02 18:28] LABS: Basophils Absolute Auto 0.1 X10*3/uL (0.0-0.2); Basophils Percent Auto 1.1 % (0-2); Eosinophils Absolute Auto 0.2 X10*3/uL (0.0-0.4); Eosinophils Percent Auto 3.7 % (0-4); Hematocrit 44.1 % (42.0-52.0); Hemoglobin 13.8 g/dl (14.0-18.0); Imm Gran Abs Auto 0.01 X10*3/uL (0.00-0.03); Imm Gran Pct Auto 0.2 % (0.0-0.4); Lymphocytes Absolute Auto 1.9 X10*3/uL (1.2-4.9); Lymphocytes Percent Auto 42.7 % (20-40); Mean Corpuscular HGB Conc 31.3 g/dl (31.0-36.0); Mean Corpuscular Hemoglobin 21.7 pg (27.0-33.0); Mean Corpuscular Volume 69.3 fL (80.0-98.0); Monocytes Absolute Auto 0.3 X10*3/uL (0.1-1.2); Monocytes Percent Auto 7.3 % (2-11); Platelet Count 173 X10*3/uL (160-400); Red Blood Count 6.36 X10*6/uL (4.60-5.80); Red Cell Distribution Width 17.6 % (11.0-16.0); White Blood Count 4.4 X10*3/uL (4.8-10.8)
== END 2024-06-02 14:46 | disposition home or self-care (01) ==
LOC: HO.WFDLDS 14:45
PROVIDERS: Visit Provider Internal Medicine
DX: Z01.812 Encounter for preprocedural laboratory examination (principal)
CPT/HCPCS: 36415; 80053; 85025; 85610; 85730

== ENCOUNTER 2024-06-29 12:32 | Outpatient (AMB) | payer OTHER, SELFPAY ==
--- NOTE | 2024-06-29 12:35 | MHC.OFFVIS ---
Vital Signs 06/29/24 12:38 Height 5 ft 7 in Weight 176 lb BMI 27.6 Intake Visit Reasons: OV-Left knee follow up-discuss possibly surgery? Intake Note: Jennie is a 23 year old male who presents today for a follow up of his left knee. He was previously seen in 2022 where he was booked for left knee arthroscopy but his surgery was cancelled as he did not have a PCP for surgical clearance. He reports that his symptoms have remained the same and he would like to re-book. Allergies No Known Allergies Allergy (Verified 06/01/24 13:18) HPI HPI OV-Left knee follow up-discuss possibly surgery?: Details: Jennie is a 23 year old male who presents today for a follow up of his left knee. He was previously seen in 2022 where he was booked for left knee arthroscopy but his surgery was cancelled as he did not have a PCP for surgical clearance. He reports that his symptoms have remained the same and he would like to re-book. The describes having quit his job because of his inability to remain standing for extended periods of time. He describes occasional swelling and discomfort but more problematic is that he can not return to any of his prior activities because his knee will become painful and swap swollen so he has to resort to standing and walking only. 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 Surgical History History of umbilical hernia repair Family History Other Family history unknown Social History Household Members: Family Housing: Apartment Alcohol intake: never Patient Tobacco Use Status: Never used Tobacco e-Cigarette/Vaping Use: Never Used Substance Use Type: Marijuana service: No Current occupational status: employed Current occupation: right hand dominant//[employer] Cognitive needs: No Hearing needs: No Vision needs: No Physical Exam Vital Signs: BMI result Body Mass Index 27.6 Extrem Other: Full range of motion and trace effusion left knee Results Reviewed Results Reviewed: I personally reviewed relevant MR images 1. Osteochondral lesion at the central aspect of the weight-bearing medial femoral condyle measuring up to 3.2 x 1.9 cm (AP x ML) with a central osteochondral fragment measuring up to 1.1 cm. Overlying articular cartilage loss with underlying subchondral cystic change. Nondisplaced, unstable central osteochondral fragment measuring up to 1.1 cm. 2. Trace joint effusion with multiple ossified loose bodies measuring up to 1.1 cm. 3. No acute meniscal or ligamentous injury. Assessment & Plan Assessment & Plan (1) Osteochondral defect of femoral condyle: Code(s): M95.8 - Other specified acquired deformities of musculoskeletal system Category: Medical Plan: This is a 23-year-old with a large osteochondral defect of the weight-bearing portion of the medial femoral condyle with fragmentation and disruption of the subchondral bone. I recommend osteochondral allograft. He has a history of microcytic anemia with an abnormal bleeding time and will require preoperative evaluation possibly clearance. He may have already had this it is unclear given that we had discussed surgery in the past. I continue to recommend osteochondral allograft for this defect. He is 23 and otherwise active. I explained to him the risks, benefits and alternatives including, but not limited to, the risk of infection, incomplete symptom resolution, continued pain. He expressed understanding and we will proceed forward accordingly. Coding Level of Care Code Est Pt Level 4 (84261) Diagnoses Osteochondral defect of femoral condyle M95.8
[2024-06-29 12:38] VITALS: BMI 27.6
== END 2024-06-29 12:59 | disposition home or self-care (01) ==
LOC: HO.HOS 12:33
PROVIDERS: Visit Provider Orthopaedic Surgery
DX: M95.8 Other specified acquired deformities of musculoskeletal system (principal)
CPT/HCPCS: 99214

== ENCOUNTER → 2024-06-29 12:32 | Outpatient (BNVA) | payer OTHER, SELFPAY | PROVIDERS: Visit Provider Orthopaedic Surgery | DX: M95.8 Other specified acquired deformities of musculoskeletal system (principal) | CPT/HCPCS: 99212 ==

== ENCOUNTER → 2024-08-03 10:31 | Outpatient (BNV) | payer OTHER, SELFPAY | PROVIDERS: PCP Internal Medicine; Referring Provider Internal Medicine; Visit Provider Internal Medicine | DX: D64.9 Anemia, unspecified (principal) | CPT/HCPCS: 99204 ==

== ENCOUNTER 2024-08-03 11:21 | Emergency (ER) | payer OTHER, SELFPAY ==
[2024-08-03 11:58] VITALS: BP 148/90; PULSE 80; RESP 18; TEMP 36.6; O2SAT 100; BMI 29.7
--- NOTE | 2024-08-03 12:02 | ED.GENADULT ---
HPI - General Adult General Chief complaint: Dental/Oral Stated complaint: dental pain Time Seen by Provider: 08/03/24 12:01 Source: patient Mode of arrival: ambulatory Limitations: no limitations History of Present Illness ED Provider: Varghese Stone HPI narrative: 24 yold male healthy with no past medical history presents to the ED for left lower molar pain recurrent for the past 3 days. Patient denies any recent trauma, facial swelling, drooling, change in voice, neck swelling, chest pain, shortness of breath, fever, or chills. 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 Surgical History History of umbilical hernia repair Family History Family History Other Family history unknown Social History Social History (Updated 08/03/24 @ 10:43 by Yin Mansfield) Household Members: Family Housing: Apartment Alcohol intake: never Patient Tobacco Use Status: Never used Tobacco e-Cigarette/Vaping Use: Never Used Substance Use Type: Marijuana Advance Directives: No service: No Current occupational status: employed and unemployed Current occupation: right hand dominant//[employer] Gender identity: Male Cognitive needs: No Hearing needs: No Vision needs: No Physical Exam ED Vital Signs: Vital Signs - 24 hr 08/03/24 11:58 08/03/24 12:10 Temperature 98 F 98 F Pulse Rate 80 80 Respiratory Rate 18 18 Blood Pressure 148/90 H 148/90 H Pulse Oximetry 100 100 Oxygen Delivery Method Room Air Room Air BMI result Body Mass Index 29.7 Const General: cooperative, healthy appearing, comfortable, no acute distress, well developed, alert, awake and Physically active Orientation/consciousness: patient oriented x3 [facility] Head: Yes normal to inspection, Yes No palpable skull fracture present, Yes normocephalic and Yes atraumatic Ears: hearing grossly normal bilaterally, external ears normal, TM's normal bilaterally, TM normal on the right, TM normal on the left, EAC's normal, mastoids normal and no periauricular adenopathy Teeth image: 1. Positive for tenderness on palpation. Negative for surrounding erythema of gum, swelling, or pus collection. Negative for trismus. Rest of oral cavity normal Eyes General: appearance normal, both eyes and all related structures Neck Neck: Yes normal visual inspection, Yes full ROM, Yes no lymphadenopathy, Yes no meningeal signs, Yes trachea midline, Yes supple, No anterior neck swelling and No tender Chest Chest palpation & inspection: normal inspection of the chest and normal palpation of entire chest wall Resp Effort & Inspection: normal respiratory effort and able to speak in complete sentences Auscultation: clear to auscultation bilaterally Cardio Jugular venous distension: no JVD Heart sounds: S1 normal heart sound present and S2 normal heart sound present GI Inspection: Yes normal to inspection Palpation (GI): Soft to palpation, not firm, nontender, no guarding and not rigid General: Yes no CVA tenderness Back/Spine/Pelvis Back: no CVA tenderness and No back tenderness Skin General skin exam: no rashes or lesions noted, elasticity normal and turgor normal Neuro General: patient oriented x3, gait normal, tone normal, moves all extremities, Normal light touch and pain sensation, no meningeal signs, no focal motor deficits, CN's II-XI intact bilaterally and normal sensation to monofilament Extrem General: Yes normal to inspection, Yes full ROM and Yes capillary refill normal Psych Appearance: grossly normal, well kempt and not disheveled Medical Decision Making Medical Decision Making MDM Narrative: 24-year-old male presents to ED for left lower molar pain without any trauma, neck swelling, drooling, or change in voice. Negative trismus. Physical exam indicate possible impacted wisdom tooth. [place] tooth is tender. Patient will be discharged with antibiotics. Patient explained worrisome signs informed return to the ED immediately. Not susepcting Gunnar's angina, retropharyngeal abscess, peritonsillar abscess, respiratory compromise, anaphylaxis, trismus, or any other life-threatening etiology. Patient given information for dental clinic for follow-up. Differential Diagnosis Differential Diagnoses: The differential diagnosis associated with the presentation includes (Dental pain) Admission/Observation Consideration of admission/observation: Escalation of care including admission/observation considered Independent Historian Clinical information obtained from an independent historian. History obtained from or confirmed by: Other (Patient) External Record Review External record reviewed: Other (Prior visits) Prescription Management I considered prescription management with: Pain Medication and Antibiotic Discharge Plan Discharge Clinical Impression: Toothache Patient Disposition: Home, Self-Care Instructions: Toothache (ED) Additional Instructions: History physical exam indicate possible impacted wisdom tooth. You will need follow-up with the dental clinic. You will be discharged with antibiotics. Return to the ED immediately for any facial swelling, neck swelling, drooling, change in voice, chest pain, shortness of breath, or any other concerning symptoms. Also recommend follow up with primary care provider Prescriptions: New naproxen 500 mg tablet 500 mg PO BID PRN (Reason: pain) 7 Days Qty: 14 0RF amoxicillin-pot clavulanate 875-125 mg tablet 1 tab PO Q12H 10 Days Qty: 20 0RF Stand Alone Forms: Work/School Release Interventions: ED Discharge Assessment Last Done: 08/03/24 12:10 Discharge Date/Time: 08/03/24 12:11 Print Language: English
[2024-08-03 12:10] VITALS: BP 148/90; PULSE 80; RESP 18; TEMP 36.6; O2SAT 100
== END 2024-08-03 12:11 | disposition home or self-care (01) ==
PROVIDERS: Emergency Provider Emergency Medicine; PCP Internal Medicine
DX: K08.89 Other specified disorders of teeth and supporting structures (principal)
CPT/HCPCS: 99282; 99283

== ENCOUNTER 2024-09-22 11:28 | Outpatient (AMB) | payer OTHER, SELFPAY ==
--- NOTE | 2024-09-22 11:30 | A.OFFVIS_ITS ---
Intake Visit Reasons: Preop LT osteochondral allograft 09/30/24 NE Intake Note: Jennie is a 24 year old male who presents today for a pre op appointment for his left knee osteochondral allograft 09/30/24 NE. Mri Supervisor Required: Yes Mri Supervisor Services: Mri Supervisor Present Mri Supervisor Name: Madhu GORGE/URI Information Interpreted: clinical only Allergies No Known Allergies Allergy (Verified 09/22/24 11:32) HPI HPI Preop LT osteochondral allograft 09/30/24 NE: Details: Mr. Fernandes is a 24-year-old male who presents to the office today for preoperative appointment for left knee osteochondral allograft scheduled for 09/30/[address] Ramos. Patient has a medical history significant for: Abnormal bleeding time, microcytic anemia Patient has a past surgical history significant for: hernia repair No known drug allergies Not taking any medications currently [facility] Medical History Internal derangement of left knee Osteochondral defect of femoral condyle Surgical History History of umbilical hernia repair Family History Other Family history unknown Social History (Updated 09/22/24 @ 11:32 by Zelalem Magallanes) Household Members: Family Housing: Apartment Alcohol intake: never Patient Tobacco Use Status: Never used Tobacco e-Cigarette/Vaping Use: Never Used Substance Use Type: Marijuana service: No Current occupational status: unemployed Current occupation: right hand dominant//[employer] Gender identity: Male Cognitive needs: No Hearing needs: No Vision needs: No Review of Systems Const All systems reviewed & are unremarkable except as noted in HPI and below Physical Exam Const General: cooperative, healthy appearing and no acute distress Resp Effort & Inspection: normal respiratory effort and able to speak in complete sentences Cardio Rate: regular rate Peripheral pulses: Peripheral pulses 2+ throughout GI Palpation (GI): Soft to palpation Skin Lesions: no lesions Rashes: no rashes Extrem Other: Full range of motion and trace effusion left knee Assessment & Plan Assessment & Plan (1) Osteochondral defect of femoral condyle: Code(s): M95.8 - Other specified acquired deformities of musculoskeletal system Category: Medical Plan Mr. Fernandes is a 24-year-old male who presents to the office today for preoperative appointment for left knee osteochondral allograft scheduled for 09/30/[address] Ramos. Patient has a medical history significant for: Abnormal bleeding time, microcytic anemia Patient has a past surgical history significant for: hernia repair No known drug allergies Not taking any medications currently Patient has been seen by Dr. Choudhary in the past who is his primary care provider. Messages were sent to her in the medical record system and she has cleared the patient for surgery. Awaiting addendum to last office note to reflect this. I discussed in detail the procedure and what to expect pre and post operatively. We discussed the risks, benefits and alternatives to the surgery as well as the rehabilitation course. The risks; which include, but are not limited to infection, bleeding, nerve injury, ongoing pain, swelling, and stiffness, perioperative risk of injury to bones and soft tissues, and blood clots. I?ve answered all questions and with their understanding they have consented to move forward with left knee osteochondral allograft arthroplasty with Dr. Ramos. Coding Level of Care Code Global (27451) Diagnoses Osteochondral defect of femoral condyle M95.8
== END 2024-09-22 12:44 | disposition home or self-care (01) ==
PROVIDERS: PCP Internal Medicine; Visit Provider Physician Assistant
DX: M95.8 Other specified acquired deformities of musculoskeletal system (principal)
CPT/HCPCS: 99024

== ENCOUNTER → 2024-09-22 11:28 | Outpatient (BNVA) | payer OTHER, SELFPAY | PROVIDERS: PCP Internal Medicine; Visit Provider Physician Assistant | DX: Z01.818 Encounter for other preprocedural examination (principal); M95.8 Other specified acquired deformities of musculoskeletal system | CPT/HCPCS: 99212 ==

== ENCOUNTER 2024-09-30 08:16 | Day surgery (SDC) | payer OTHER, SELFPAY ==
[2024-09-28 08:45] VITALS: BMI 27.6
--- NOTE | 2024-09-29 09:45 | P.CONAN_ITS ---
Documented by User: Micheline Walsh NP 09/29/24 10:05 HPI - Anesthesia Eval Consult details Narrative: 24yo M for Left Knee Arthroscopy with Chondroplasty, Carti-Heal (Osteo Chondral allograft) Cancelled 09/2023 for PVC's in trigeminy and bigeminy. Anesthesia requested cardiac eval. Pt seen by PCP and ok'd to proceed without further work up. Case reviewed with Dr Erwin. Pt instructed to hold caffeine, marijuana preop, increase hydration with intrepreter. PMFSH Active Problems Active Problems: All Active Problems Abnormal bleeding time (Acute) Microcytic anemia (Acute) Abnormal laboratory test (Acute) Preoperative cardiovascular examination (Acute) Osteochondral defect of femoral condyle (Acute) Internal derangement of left knee (Acute) Past Medical History Medical History Internal derangement of left knee Osteochondral defect of femoral condyle Family History Family History Other Family history unknown Family history of problems with anesthesia: No Surgical History Surgical History History of umbilical hernia repair History of Problems with Anesthesia: Yes Social History Social History Household Members: Family Housing: Apartment Alcohol intake: never Patient Tobacco Use Status: Never used Tobacco e-Cigarette/Vaping Use: Never Used Substance Use Type: Marijuana service: No Current occupational status: unemployed Current occupation: right hand dominant//[employer] Gender identity: Male Cognitive needs: No Hearing needs: No Vision needs: No Meds Allergies Allergy/AdvReac Type Severity Reaction Status Date / Time No Known Allergies Allergy Verified 09/22/24 11:32 Exam Height,Weight and Vital Signs: Height 5 ft 7 in Weight 79.832 kg Pertinent Lab Results Pertinent Lab Results: Laboratory Tests 06/02/24 08/03/24 14:49 11:11 WBC 4.0 L Hgb 14.3 Hct 45.3 Plt Count 185 Sodium 140 Potassium 4.3 Chloride 108 Carbon Dioxide 24 BUN 15 Creatinine 1.08 Narrative Narrative: EKG 05/2024 NSR @ 61 Early Repolarization Assessment and Plan Assessment Anesthesia Assessment: Chart Reviewed Final Anesthetic Review Family History of Problems with Anesthesia: No History of Problems with Anesthesia: Yes Documented by User: Mandi Martniez MD 09/30/24 13:42 HPI - Anesthesia Eval Consult details Narrative: 24yo M for Left Knee Arthroscopy with Chondroplasty, Carti-Heal (Osteo Chondral allograft) Cancelled 09/2023 for PVC's in trigeminy and bigeminy. Anesthesia requested cardiac eval. Pt seen by PCP and ok'd to proceed without further work up. Case reviewed with Dr Erwin. Pt instructed to hold caffeine, marijuana preop, increase hydration with intrepreter. Addendum 09/30/24: Patient still with PVCs today. Sometimes with runs of bigeminy. 12 lead EKG obtained. Patient does report feeling palpitations with PVCs. Remains hemodynami licha stable with episodes of PVCs. Given IV lidocaine to see if will decrease episodes. Will proceed with surgery PMFSH Past Medical History Medical History Internal derangement of left knee Osteochondral defect of femoral condyle Family History Family History Other Family history unknown Family history of problems with anesthesia: No Surgical History Surgical History History of umbilical hernia repair History of Problems with Anesthesia: No Social History Social History Household Members: Family Housing: Apartment Alcohol intake: never Patient Tobacco Use Status: Never used Tobacco e-Cigarette/Vaping Use: Never Used Substance Use Type: Marijuana service: No Current occupational status: unemployed Current occupation: right hand dominant//[employer] Gender identity: Male Cognitive needs: No Hearing needs: No Vision needs: No Meds Allergies Allergy/AdvReac Type Severity Reaction Status Date / Time No Known Allergies Allergy Verified 09/22/24 11:32 Exam Height,Weight and Vital Signs: Height 5 ft 7 in Weight 79.832 kg Vital Signs Temp Pulse Resp BP Pulse Ox O2 Del Method 09/30/24 08:40 98.0 F 86 16 134/93 H 100 Room Air Airway Mallampati Class: II TM Dist: >3cm Neck ROM: Full Loose/Missing/Broken Teeth: Yes (Broken tooth top front. Denies loose or missing teeth) Heart: RRR Lungs: CTAB Assessment and Plan Assessment Anesthesia Assessment: Anesthesia Plan Discussed and Chart Reviewed Final Anesthetic Review Family History of Problems with Anesthesia: No History of Problems with Anesthesia: No NPO: Yes ASA Class: II Final Preanesthetic Review: No Changes in Pt Med Stat, Meds/Allgs Chart Reviewed, Consent Obtained/Reviewed and Anes Risks/Benef Reviewed Patient Risk: Intermediate Procedure Risk: Low Assessment/Block/Sedation in SS: Assess/Block/Sedation-SS Anesthetic Plan Anesthetic Plan: GA Disposition: Standard PACU
[2024-09-30] VITALS (11 sets, daily range): BP systolic 123–158; BP diastolic 64–95; PULSE 86–100; RESP 12–16; TEMP 36.1–36.7; O2SAT 95–100; BMI 27.7
--- NOTE | 2024-09-30 | ECG_ITS ---
Test Reason : PACU Blood Pressure : */* mmHG Vent. Rate : 99 BPM Atrial Rate : 99 BPM P-R Int : 124 ms QRS Dur : 88 ms QT Int : 338 ms P-R-T Axes : 49 61 43 degrees QTcB Int : 433 ms Sinus rhythm with frequent Premature ventricular complexes Otherwise normal ECG When compared with ECG of 30-Sep-2024 09:57, No significant change was found Referred By: Adam Ramos Electronically Signed By: ONEYDA MANE
[2024-09-30] MEDS: Lactated Ringers 1,000 ML 100 ML IVCONT (09:11)
--- NOTE | 2024-09-30 09:50 | ECG_ITS ---
Test Reason : PACU Blood Pressure : */* mmHG Vent. Rate : 94 BPM Atrial Rate : 94 BPM P-R Int : 126 ms QRS Dur : 86 ms QT Int : 326 ms P-R-T Axes : 52 58 43 degrees QTcB Int : 407 ms Sinus rhythm with sinus arrhythmia with frequent Premature ventricular complexes Abnormal ECG When compared with ECG of 25-Feb-2024 15:04, Premature ventricular complexes are now Present Referred By: Mandi Martinez Electronically Signed By: ONEYDA MANE
--- NOTE | 2024-09-30 10:00 | ECG_ITS ---
Test Reason : PACU Blood Pressure : */* mmHG Vent. Rate : 106 BPM Atrial Rate : 106 BPM P-R Int : 124 ms QRS Dur : 82 ms QT Int : 316 ms P-R-T Axes : 55 63 43 degrees QTcB Int : 419 ms Sinus tachycardia Otherwise normal ECG When compared with ECG of 30-Sep-2024 09:59, Premature ventricular complexes are no longer Present Referred By: Adam Ramos Electronically Signed By: ONEYDA MANE
--- NOTE | 2024-09-30 10:56 | MHC.SHP ---
Pre-Procedural Eval Section A - 24 Hr Update-Section A only Date of Service: 09/30/24 The patient is an INPATIENT: No Changes since office visit: No Cold of Flu in the past 2 weeks, No New Medical Problems, No Changes in Medication and No Patient answered all questions The patient has been examined within 24 hours of the surgical procedure. The History & Physical has been completed within 30 days and I have reviewed it.: Yes Section B - Complete if H&P > 30 days Chief Complaint: specified acquired deformities of musculoskeletal Allergies: Allergies Allergy/AdvReac Type Severity Reaction Status Date / Time No Known Allergies Allergy Verified 09/22/24 11:32 Plan I have reviewed the history and physical and performed a pertinent physical examination on my patient. No changes have occurred unless specified. Time Spent With Patient Time: Total time managing care of this patient today ____ minutes.
[2024-09-30] MEDS: fentaNYL citrate/PF 100 MCG/2 ML VIAL 25 MCG IVPUSH ×2 (13:23→13:36)
[2024-09-30] MEDS: oxyCODONE HCl Immed Release 5 MG TABLET PO (13:33)
[2024-09-30] MEDS: ondansetron HCL 4 MG/2 ML VIAL IVPUSH (13:44)
--- NOTE | 2024-09-30 14:26 | PM.OP ---
Brief Operative Note Date of Service: 09/30/24 Pre-op diagnosis: left medial femoral condyle osteochondral defect Post-op diagnosis: same Procedure: Xenograft implantation procedure [id number] Implants: Carti-Heal 7.5 x 2, Resendiz and Nephew Surgeon: Adam Ramos MD Anesthesia: GLMA and regional Was an Quality Assurance Qa Lab Analyst used for this Procedure?: Yes Quality Assurance Qa Lab Analyst: Rhonda Vallecillo Estimated blood loss (mL): 50 Tourniquet time (min): 75 IV fluids (mL): 1,000 Pathology: none sent Condition: stable Disposition: PACU
--- NOTE | 2024-10-02 17:23 | P.OP_ITS ---
Operative Note Operative Note Date of Service: 09/30/24 Narrative: Date of Service: 09/30/24 Pre-op diagnosis: left medial femoral condyle osteochondral defect Post-op diagnosis: same Procedure: Xenograft implantation procedure [id number] Implants: Carti-Heal 7.5 x 2, Resendiz and Nephew Surgeon: Adam Ramos MD Anesthesia: GLMA and regional Was an Private Sector Executive used for this Procedure?: Yes Private Sector Executive: Rhonda Vallecillo Estimated blood loss (mL): 50 Tourniquet time (min): 75 IV fluids (mL): 1,000 Pathology: none sent Condition: stable Disposition: PACU Procedure in detail:Patient was brought to the operating room and placed supine on the surgical table. She was prepped and draped in standard sterile fashion and a time out was called to indentify proper site, proper procedure and IV antibiotics per weight were administered. I began by exsanguinating the limb and insufflating tourniquet to 300 mm Hg. Then made a standard anterolateral stab incision. The knee was insufflated with water and 30 degree arthroscope was placed. There was grade 0 fibrillations of the patella . There was a loose body in the lateral recess of the suprapatellar pouch. This appeared to be a osteo cartilaginous fragment proximally 1 cm x 1 cm. The medial and lateral gutters were clean. I descended into the medial compartment where I made my medial portal under direct visualization. There was a normal medial meniscus. The root was intact and there was grade 0 changes in the tibial plateau but minimal. At this point I visualize the osteochondral lesion. This is a proximally 2 cm by 4 cm and included the lateral aspect of the weight-bearing portion of the medial femoral condyle. I then entered the notch and the ACL was examined and found to be intact and the lateral compartment also was without the need for intervention. I then removed all instrumentation. I then performed a medial parapatellar arthrotomy extending from 1 cm proximal tip of the patella down to the medial tibial plateau. Full-thickness flaps were developed and the arthrotomy was performed and I was able to visualize the entirety of the defect in the medial femoral condyle. I used a curette to debride any loose cartilaginous fragments. I then identified the defect in size and marked this with a 7.5 mm marking instrument. I began with the posterior aspect of the lesion. A guidewire was drilled through the marking device. This was over reamed for my depth and then I cored this out several times until I was at the appropriate depth. I then used the Reamer around the edges to stimulate cartilage migration. I then placed the Cartiheal implant. This was inserted digitally until it was below the most prominent articular surface by approximately 3-4 mm. Again I was very satisfied with the location. A proximally 75% of the circumference was surrounded by healthy cartilage. I was satisfied with this and then I turned my attention to eulalio anterior aspect of the lesion. I chose healthy cartilage superiorly and medially and again used a K-wire to drill through my 7.5 mm guide. I then over drilled to appropriate depth and then reamed 3-4 times to the appropriate depth. A reaming was performed around the edges again to stimulate cartilaginous migration and my 2nd Cartiheal 7.5 mm implant was press-Fit digitally until it was approximately 3 mm deep to the surrounding cartilage surfaces. My final photographs were taken and the loose chondral fragment in the suprapatellar pouch was removed arthroscopically. All instrumentation was then removed and the arthrotomy was closed with absorbable suture and tutu. Patient was then placed in sterile dressing extubated brought recovery room stable condition. There were no known complications.
== END 2024-09-30 15:15 | disposition home or self-care (01) ==
LOC: HO.SSS 08:18
PROVIDERS: PCP Internal Medicine; Visit Provider Orthopaedic Surgery
PROC: (CPT 29870; principal; 2024-09-30 10:50)
DX: M93.262 Osteochondritis dissecans, left knee (principal); M21.862 Other specified acquired deformities of left lower leg; G89.29 Other chronic pain; M25.562 Pain in left knee; D50.9 Iron deficiency anemia, unspecified; Z98.890 Other specified postprocedural states
CPT/HCPCS: 0737T; 93005; J0131; J0171; J0665; J0690; J1100; J1885; J2003; J2250; J2405; J2704; J2795; J3010

== ENCOUNTER → 2024-09-30 08:16 | Outpatient (BNV) | payer OTHER, SELFPAY | PROVIDERS: PCP Internal Medicine; Visit Provider Orthopaedic Surgery | DX: M93.262 Osteochondritis dissecans, left knee (principal) | CPT/HCPCS: 29885 ==

== ENCOUNTER → 2024-09-30 09:50 | Outpatient (BNV) | payer OTHER, SELFPAY | PROVIDERS: PCP Internal Medicine; Visit Provider Internal Medicine | DX: I49.3 Ventricular premature depolarization (principal); R00.0 Tachycardia, unspecified | CPT/HCPCS: 93010 ==

== ENCOUNTER → 2024-10-09 12:46 | Outpatient (BNVA) | payer OTHER, SELFPAY | PROVIDERS: PCP Internal Medicine; Visit Provider Physician Assistant | DX: M95.8 Other specified acquired deformities of musculoskeletal system (principal); Z47.89 Encounter for other orthopedic aftercare; Z98.890 Other specified postprocedural states | CPT/HCPCS: 99212 ==

== ENCOUNTER 2024-10-26 14:13 | Outpatient (AMB) | payer OTHER, SELFPAY ==
--- NOTE | 2024-10-26 14:26 | MHC.PC.OV ---
Vital Signs 10/26/24 14:36 Weight 190 lb 8 oz BP 124/58 L Blood Pressure Location Lt brachial Position Sitting Respiration 16 Pulse 84 Pulse Source Pulse Oximeter Pulse Oximetry (%) 99 Oxygen Delivery Method Room Air Intake Visit Reasons: Annual Physical Intake Note: Physical Forming Process Line Worker Required: Yes Forming Process Line Worker Language: County Extension Agent Name: [id number] Allergies No Known Allergies Allergy (Verified 10/26/24 14:30) Tobacco use date assessed: 10/26/24 Dental Screening Dental Screen Date: 03/24/24 HPI HPI Comments History of Present Illness Details 23 year old male with a past medical history of chronic knee pain 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 He is now s/p s/p left knee osteochondral allograft 09/30/24, Dr [place] [facility] He previously underwent left knee arthroscopy [place] [facility] [place] this year. Dental UTD Flu vaccine today ROS CONSTITUTIONAL: Denies weight loss, fever and chills. HEENT: Denies changes in vision and hearing. RESPIRATORY: Denies SOB and cough. CV: Denies palpitations and CP GI: Denies abdominal pain, nausea, vomiting and diarrhea. : Denies dysuria and urinary frequency. MSK: Denies new myalgia and joint pain. SKIN: Denies rash and pruritus. NEUROLOGICAL: Denies headache PSYCHIATRIC: Denies recent changes in mood. PHYSICAL EXAM: GENERAL: Alert and oriented x 3. NAD EYES: EOMI. Anicteric. HENT: Moist mucous membranes. No scleral icterus. No cervical lymphadenopathy. LUNGS: Clear to auscultation bilaterally. CARDIOVASCULAR: Regular rate and rhythm. ABDOMEN: Soft, non-tender +bs : normal penis and testes EXTREMITIES: No edema. Non-tender. SKIN: No rashes or lesions. Warm. NEUROLOGIC: No focal neurological deficits. CN II-XII grossly intact PSYCHIATRIC: Cooperative. 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 Surgical History H/O left knee surgery History of umbilical hernia repair Family History Other Family history unknown Social History Household Members: Family Housing: Apartment Alcohol intake: never Patient Tobacco Use Status: Never used Tobacco e-Cigarette/Vaping Use: Never Used Substance Use Type: Marijuana service: No Current occupational status: unemployed Current occupation: right hand dominant//[employer] Gender identity: Male Cognitive needs: No Hearing needs: No Vision needs: No Questionnaire PHQ-9 Over the last 2 weeks, how often have you been bothered by any of the following problems? 1. Little interest or pleasure in doing things: not at all 2. Feeling down, depressed, or hopeless: not at all 3. Trouble falling or staying asleep, or sleeping too much: nearly every day 4. Feeling tired or having little energy: not at all 5. Poor appetite or overeating: not at all 6. Feeling bad about yourself - or that you are a failure or have let yourself or your family down: not at all 7. Trouble concentrating on things, such as reading the newspaper or watching television: not at all 8. Moving or speaking so slowly that other people could have noticed. Or the opposite - being so fidgety or restless that you have been moving around a lot more than usual: not at all 9. Thoughts that you would be better off or of hurting yourself in some way: not at all Total score: 3 Depression Screening Interpretation: Negative Depression Screening Done: Yes 33436 - PHQ-9 Billing: Yes Source: Developed by Drs. Darin Arredondo, Jordyn Castro, Clifton Her and colleagues, with an educational get from [employer]. Thrive Questionnaire Date Thrive assessed: 10/19/24 I am a: Patient What is your living situation today?: I have a place to live, but I am worried about losing it in the future Within the past 12 months, did the food you bought not last and you didn't have the money to get more?: Often true Within the past 12 months, did you worry whether your food would run out before you got money to buy more?: Sometimes True Do you have trouble paying for medicines?: No Do you have trouble getting transportation to medical appointments?: Yes Do you have trouble paying your heating and electricity bill?: Yes Do you have trouble taking care of your child, family member or friend?: No Do you have trouble with day-to-day activities such as bathing, preparing meals, shopping, managing finances, etc.?: Yes Are you currently unemployed and looking for a job?: Yes Are you interested in more education?: Yes Please select the resources that you would like help with: Housing/Long Term, Food, Paying for medicine, Transportation, Job search/training and Education Currently or been in a relationship where the following occur: No concerns reported THRIVE Score: 5 AUDIT C Alcohol Use Questionnaire (AUDIT-C) 1. How often do you have a drink containing alcohol?: Never Total Score: 0 ELIANA-7 AMB Questionnaire ELIANA-7 Date ELIANA - 7 assessed: 03/24/24 Feeling nervous, anxious, or on edge: 0 = Not at all Not being able to stop or control worryin = Not at all Worrying too much about different things: 0 = Not at all Trouble relaxin = Nearly every day Being so restless that it is hard to sit still: 0 = Not at all Becoming easily annoyed or irritable: 0 = Not at all Feeling afraid as if something awful might happen: 0 = Not at all Total ELIANA-7 score (0-4 normal; 5-9 mild; 10-14 moderate; 15-21 severe): 3 Source: Developed by Drs. Darin Arredondo, Jordyn Castro, Clifton Her and colleagues, with an educational get from [employer]. Physical exam (Primary Care) Tobacco/Smoking Status: Tobacco use Status Tobacco use date assessed 03/24/24 10/26/24 14:27 Patient Tobacco Use Status Never used Tobacco 10/26/24 14:27 e-Cigarette/Vaping Use Never Used 10/26/24 14:27 PHQ-9: PHQ-9 Score PHQ-9: Total score 3 10/26/24 14:27 Depression Screening Interpretation: Negative Thrive Assessment: Date of Thrive Assessment Date Thrive assessed 10/19/24 10/26/24 14:27 Currently or been in a relationship where the following occur: No concerns reported Coding Level of Care Code Est Pt Prev Care 18-39y(24438) Diagnoses Physical exam Z00.00 Additional Codes PHQ-9 - 06936 - PHQ-9 Billing: Yes ([id number]) Assessment & Plan Assessment & Plan (1) Physical exam: Code(s): Z00.00 - Encounter for general adult medical examination without abnormal findings Category: Medical Plan: 24 y/o for physical exam. Chronic medical conditions reviewed. Interval history reviewed. Medications reconciled. Preventive measures for age discussed. Flu vaccine today
[2024-10-26 14:36] VITALS: BP 124/58; PULSE 84; RESP 16; O2SAT 99
--- OUTSIDE RECORDS SUMMARY | 2024-10-26 16:21 | XMS_ITS | Encounter Summary ---
Author Organization [facility] Address [address] [place] [address] Care Team Providers Care Sales And Marketing Agent Name Role Phone Unavailable Primary Care Provider Unavailabl e Encounter Details Date Type Department Care Team (Late st Contact Info) Description 10/20/2024 1:00 PM EST Office Visit [facility] [address] [place] [address] Brett Oliver DDS [address] [place] [address] Caries of dentin (Primary Dx) Social History Tobacco Use Types Packs/Day Years Used Date Smoking Tobacco: Never Tobacco Cessation:Counseling Given: Not Answered Social Connections Answer Date Recorded Connectedness 0 08/21/2024 Financial Resource Strain Answer Date R ecorded Financial Resource Strain 0 2023 Stress Answer Date Recorded Stress 0 08/21/2024 Physical Activity Answer Date Recorded Physical Activity 0 08/21/2024 Food Insecurity Answer Date Recorded Food 0 08/21/2024 Transportation Needs Answer Date Record ed Transportation 0 08/21/2024 Housing Stability Answer Date Recorded Housing 0 08/21/2024 Safety and Environment Answer Date Dylon rded Safety 0 08/21/2024 Utilities Answer Date Recorded Utilities 0 08/21/2024 Employment Answer Date Recorded Stress 0 08/21/2024 Sex and Gender Information Value Date Recorded Sex Assigned at Not on file Legal Sex Male 9:50 AM PST Gender Identity Not on file Sexual Orientation Not on file documented as of this encounter Progress Notes * Brett Oliver DDS - 10/20/2024 1:39 PM EST Dental Extraction Subjective Jennie Fernandes, 24 year old male, presents alone for extraction. Wide Area Network Systems Administrator: Yes: Niuean Ref from [facility] Objective RMHx: Yes Vitals: 128/85 IOE: #16 O caries extruded biting retromolar area on #17 impacted molar Horizontal position close to ASHLY Assessment Dx: K02.62 Caries of dentin (primary encounter diagnosis) Plan Ext #16 today [facility] to [facility] [place] [facility] for Evaluation and ext # 1,17,32 Pt agreed w/ tx plan . Informed Consent/PARQ (Procedure, Alternatives, Risks, Questions): Patient confirms informed consent using PARQ, reviewed extraction consent and signed. Time-out completed: Yes Dental procedures in this visit D7140 - EXTRACTION ERUPTED TOOTH OR EXPOSED ROOT 16 (Completed) Service provider: Brett Oliver DDS Billing provider: Brett Oliver DDS D9450 - CASE PRESENTATION SUBS DTL & EXTENSIVE TX PLN (Completed) Service provider: Brett Oliver DDS Billing provider: Brett Oliver DDS D0330 - PANORAMIC RADIOGRAPHIC IMAGE (Completed) Service provider: Brett Oliver DDS Billing provider: Brett Oliver DDS Topical Anesthetic: 20% topical benzocaine Local Anesthetic: 1 carpule 4% articaine (Septocaine) with 1:100k epi Injection administered: PSA, Palatal Extraction(s) completed with periosteal, elevator, forceps, envelope flap, socket irrigated, socketcurretted, hemostasis obtained, gauze pressure, confirmed roots in tact and socket clear, no complications Post-Op Information Given: written & verbal Pain Management: OTC Acetaminophen 500mg q6h Behavior: Excellent DA: Sandi NV: New Patient Exam documented in this encounter Miscellaneous Notes * Patient Instructions - Sandi Patterson - 10/20/2024 1:29 PM EST If you are not able to keep your appointment please call 24-48 hours before your appointment to cancel or reschedule. documented in this encounter Plan of Treatment Scheduled Orders Name Type Priority Associated Diagnoses Order Schedule 17 EXTRACTION ERUPTED TOOTH OR EXPOSED ROOT Dental Procedures Routine 1 Occurrences starting 10/20/2024 32 EXTRACTION ERUPTED TOOTH OR EXPOSED ROOT Dental Procedures Routine 1 Occurrences starting 10/20/2024 1 EXTRACTION ERUPTED TOOTH OR EXPOSED ROOT Dental Procedures Routine 1 Occurrences starting 10/20/2024 documented as of this encounter Procedures Procedure Name Priority Date/Time Associated Diagnosis Comments CASE PRESENTATION SUBS DTL & EXTENSIVE TX PLN Routine 10/20/2024 1:00 PM EST Caries of dentin 16 EXTRACTION ERUPTED TOOTH OR EXPOSED ROOT Routine 10/20/2024 1:00 PM EST Caries of dentin PANORAMIC RADIOGRAPHIC IMAGE Routine 10/20/2024 1:00 PM EST Caries of dentin documented in this encounter Visit Diagnoses Diagnosis Caries of dentin- Primary Dental caries extending into dentine documented in this encounter
--- OUTSIDE RECORDS SUMMARY | 2024-10-26 16:21 | XMS_ITS | Clinical Summary ---
Author Organization [facility] Address [address] [place] [address] Care Team Providers Care Caser Up Name Role Phone Unavailable Primary Care Provider Unavailabl e Source Comments PLEASE NOTE, if this patient is a minor, it may be UNLAWFUL to discuss sensitive information that is contained in these records (such as FAMILY PLANNING, MENTAL HEALTH or SUBSTANCE ABUSE) with the minor patient's parent or other person without the patient's specific authorization.[facility] Medications No known medications Active Problems No known active problems Encounters Date Type Department Care Team Description 10/20/2024 1:00 PM EST Office Visit [facility] [address] [place] [address] Brett Oliver DDS Caries of dentin (Primary Dx) from Last 3 Months Social History Tobacco Use Types Packs/Day Years [...] on file Sexual Orientation Not on file Plan of Treatment Health Maintenance Due Date Last Done Comments Hepatitis C Screening 2002 Tobacco Screening 2002 Imm-Varicella (1 of 2 - 13+ 2-dose series) 2015 HIV Screening 2017 Imm-HPV (1 - Male 3-dose series) 2017 Hypertension Screening (#1) 2020 Imm-DTaP/Tdap/Td (1 - Tdap) 2021 Imm-Hepatitis B (1 of 3 - 19+ 3-dose series) [id number] (1 - season) 2024 Imm-Influenza (#1) 2024 Alcohol and Drug Screen 09/02/2024 Depression Annual Screen 09/02/2024 Procedures Procedure Name Priority Date/Time Associated Diagnosis Comments PANORAMIC RADIOGRAPHIC IMAGE Routine 10/20/2024 1:00 PM EST Caries of dentin CASE PRESENTATION SUBS DTL & EXTENSIVE TX PLN Routine 10/20/2024 1:00 PM EST Caries of dentin 16 EXTRACTION ERUPTED TOOTH OR EXPOSED ROOT Routine 10/20/2024 1:00 PM EST Caries of dentin REFERRAL SCANNED DOCUMENT 2024 3:00 AM EST from Last 3 Months Results * REFERRAL SCANNED DOCUMENT (10/20/2024 3:00 AM EST) 10/20/2024 3:00 AM EST Ravindra Lehman MD SCAN REFERRAL Final Result from Last 3 Months Insurance [place] [address]
--- OUTSIDE RECORDS SUMMARY | 2024-10-26 16:21 | XMS_ITS | Clinical Summary ---
Author Organization [employer] Address [address] [place] [address] [address] [place] [address] Care Team Providers Care Steam And Power Superintendent Name Role Phone Unavailable Primary Care Provider Unavailabl e Allergies No known active allergies Medications ibuprofen 400 MG tablet Take 1 tablet (400 mg) by mouth every 6 (six) hours if needed for moderate pain or fever for up to 30 doses. 30 tablet 04/04/2023 Active acetaminophen (Tylenol) 500 MG tablet Take 2 tablets (1,000 mg) by mouth every 6 (six) hours if needed for moderate pain or fever for up to 25 doses. 40 tablet 04/04/2023 Active Social History Tobacco Use Types Packs/Day Years Used Date Smoking Tobacco: Former Cigarettes Passive Smoke Exposure: Never Smokeless Tobacco: Former Tobacco Cessation:Counseling Given: Not Answered Sex and Gender Information Value Date Recorded Sex Assigned at Male 04/04/2023 3:34 PM EDT Legal Sex Male 3:30 PM EDT Gender Identity Male 04/04/2023 3:34 PM EDT Sexual Orientation Don't know 04/04/2023 3: 34 PM EDT Last Filed Vital Signs Vital Sign Reading Time Taken Comments Blood Pressure 149/82 10/03/2023 10:29 AM EST Pulse 81 10/03/2023 10:29 AM EST Temperature 36.6 ??C (97.8 ??F) 10/03/2023 10:[address] Respiratory Rate 16 10/03/2023 10:29 AM EST Oxygen Saturation 98% 10/03/2023 10:29 AM EST Inhaled Oxygen Concentration - - Weight 87.2 kg (192 lb 3.2 oz) 10/03/2023 10:29 AM EST Height 175.3 cm (5' 9 ) 04/04/2023 3:59 PM EDT Body Mass Index 28.38 04/04/2023 3:59 PM EDT Plan of Treatment Health Maintenance Due Date Last Done Comments Chlamydia and Gonorrhea Screening 2002 Depression Screening 2002 HIV Screening 2002 SDOH Screening 2002 Alcohol/Substance Use Screening 2014 Family Planning (PISQ) 2017 HPV Vaccines (1 - Male 3-dos e series) 2017 Hepatitis C Screening 2020 DTaP/Tdap/Td Vaccines (1 - Tdap) 2021 Hepatitis B Vaccines (1 of 3 - 19+ 3-dose series) 2021 COVID-19 Vaccine (1 - 2023-2 5 season) 2024 Influenza Vaccine (#1) 2024 Tobacco Screening 10/03/2024 10/03/2023 Zoster Vaccines (1 of 2) 2052 RSV Patients and Pa tients Aged 60 years or older (1 - 1-dose 75+ series) 2077 HIB Vaccines Aged Out No longer eligi ble based on patient's age to complete this topic Hepatitis A Vaccines Aged Out No long er eligible based on patient's age to complete this topic IPV Vaccines Aged Out No longer eligi ble based on patient's age to complete this topic Meningococcal Vaccine Aged Out No shala kimberly eligible based on patient's age to complete this topic Pneumococcal Vaccine: Pediat rics (0 to 5 Years) and At-Risk Patients (6 to 49) Years) Aged Out No longer elig ible based on patient's age to complete this topic RSV under 20 months Aged Out No longe r eligible based on patient's age to complete this topic Rotavirus Vaccines Aged Out No longer eligible based on patient's age to complete this topic [facility] F[facility]
== END 2024-10-26 15:04 | disposition home or self-care (01) ==
PROVIDERS: PCP Internal Medicine; Visit Provider Internal Medicine
DX: Z00.00 Encounter for general adult medical examination without abnormal findings (principal)

== ENCOUNTER → 2024-10-26 14:13 | Outpatient (BNVA) | payer OTHER, SELFPAY | PROVIDERS: PCP Internal Medicine; Visit Provider Internal Medicine | DX: Z00.00 Encounter for general adult medical examination without abnormal findings (principal); G89.29 Other chronic pain; M25.562 Pain in left knee | CPT/HCPCS: 96127; 99395 ==

== ENCOUNTER 2024-11-06 10:43 | Outpatient (AMB) | payer OTHER, SELFPAY ==
--- NOTE | 2024-11-06 11:07 | MHC.OFFVIS ---
Intake Visit Reasons: PO LT osteochondral allograft 09/30/24 NE Intake Note: Jennie is a 24 year old male who presents today for a post op appointment about 2 months s/p left knee osteochondral allograft 09/30/24 NE. Patient is having mild discomfort. He expresses that his pain is a 3/10 on the pain scale. 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 Surgical History H/O left knee surgery History of umbilical hernia repair Family History Other Family history unknown Social History Household Members: Family Housing: Apartment Alcohol intake: never Patient Tobacco Use Status: Never used Tobacco e-Cigarette/Vaping Use: Never Used Substance Use Type: Marijuana service: No Current occupational status: unemployed Current occupation: right hand dominant//[employer] Gender identity: Male Cognitive needs: No Hearing needs: No Vision needs: No Physical Exam Extrem Other: inc c/d/i 0-120 deg of motion no effusion Assessment & Plan Assessment & Plan (1) Osteochondral defect of femoral condyle: Code(s): M95.8 - Other specified acquired deformities of musculoskeletal system Category: Medical Plan: s/p OC allograft. He is doing well and may progress to WBAT. Is dpoing PT and needs quad strengthening. NSAIDs for pain. f/u 6 weeks Medications: New naproxen (EC-Naprosyn) 500 mg PO BID 60 tabs 0RF pain Coding Level of Care Code Global (59566) Diagnoses Osteochondral defect of femoral condyle M95.8
--- OUTSIDE RECORDS SUMMARY | 2024-11-06 12:16 | XMS_ITS | Encounter Summary ---
Author Organization [facility] Address [address] [place] [address] Care Team Providers Care Rejected Items Clerk Name Role Phone Unavailable Primary Care Provider Unavailabl e Encounter Details Date Type Department Care Team (Late st Contact Info) Description 10/20/2024 1:00 PM EST Office Visit [facility] [address] [place] [address] Brett Oliver DDS [address] [place] [address] Caries of dentin (Primary Dx) Social History [...] year old male, presents alone for extraction. Etl Consultant: Yes: Panamanian Ref from [facility] Objective RMHx: Yes Vitals: 128/85 IOE: #16 O caries extruded biting retromolar area on #17 impacted molar Horizontal position close to ASHLY Assessment Dx: K02.62 Caries of dentin (primary encounter diagnosis) Plan Ext #16 today [facility] to [facility] [place] [facility] for Evaluation and ext # [...]
--- OUTSIDE RECORDS SUMMARY | 2024-11-06 12:16 | XMS_ITS | Clinical Summary ---
Author Organization [facility] Address [address] [place] [address] Care Team Providers Care Value Analysis Coordinator Name Role Phone Unavailable Primary Care Provider [...] Description 10/20/2024 1:00 PM EST Office Visit [address] [place] [address] Brett Oliver DDS Caries of [...] (1 of 3 - 19+ 3-dose series) [id number] (1 - season) 2024 Imm-Influenza (#1) 2024 [...] Final Result from Last 3 Months Insurance [place] D[place] [facility] [place] [address]
--- OUTSIDE RECORDS SUMMARY | 2024-11-06 12:16 | XMS_ITS | Clinical Summary ---
Author Organization [employer] Address [address] [place] [address] [address] [place] [address] Care Team Providers Care Public Address Servicer Name Role Phone Unavailable Primary Care Provider [...] patient's age to complete this topic Insurance [facility] C3 HSN FULL
== END 2024-11-06 12:01 | disposition home or self-care (01) ==
PROVIDERS: PCP Internal Medicine; Visit Provider Orthopaedic Surgery
DX: M95.8 Other specified acquired deformities of musculoskeletal system (principal)
CPT/HCPCS: 99024

== ENCOUNTER → 2024-11-06 10:43 | Outpatient (BNVA) | payer OTHER, SELFPAY | PROVIDERS: PCP Internal Medicine; Visit Provider Orthopaedic Surgery | DX: M95.8 Other specified acquired deformities of musculoskeletal system (principal) | CPT/HCPCS: 99212 ==

== ENCOUNTER 2024-12-04 10:49 | Outpatient (AMB) | payer OTHER, SELFPAY ==
--- NOTE | 2024-12-04 11:00 | MHC.OFFVIS ---
Intake Visit Reasons: PO LT osteochondral allograft 09/30/24 NE Intake Note: Jennie is a 24 year old male who presents today for a post op appointment about 3 months s/p left knee osteochondral allograft 09/30/24 NE. Patient reports that he is doing well with no concerns Allergies No Known Allergies Allergy (Verified 11/06/24 11:09) HPI HPI PO LT osteochondral allograft 09/30/24 NE: Details: Osteochondral allograft 2 months ago doing well. He has no pain in his walking normally. [facility] Medical History Internal derangement of left knee Osteochondral defect of femoral condyle Surgical History H/O left knee surgery History of umbilical hernia repair Family History Other Family history unknown Social History Household Members: Family Housing: Apartment Alcohol intake: never Patient Tobacco Use Status: Never used Tobacco e-Cigarette/Vaping Use: Never Used Substance Use Type: Marijuana service: No Current occupational status: unemployed Current occupation: right hand dominant//[employer] Gender identity: Male Cognitive needs: No Hearing needs: No Vision needs: No Physical Exam Extrem Other: Well-healed incision with no effusion. Full range of motion left knee. Assessment & Plan Assessment & Plan (1) Osteochondral defect of femoral condyle: Code(s): M95.8 - Other specified acquired deformities of musculoskeletal system Category: Medical Plan: Posterior chondral defect status post osteochondral allograft doing well. Continue daily activities. May return to work with no restrictions assuming it is not heavy lifting. 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 Coding Level of Care Code Global (29363) Diagnoses Osteochondral defect of femoral condyle M95.8
--- OUTSIDE RECORDS SUMMARY | 2024-12-04 12:31 | XMS_ITS | Clinical Summary ---
Author Organization [employer] Address [address] [place] [address] [address] [place] [address] Care Team Providers Care Chief Librarian Extension Department Name Role Phone Unavailable Primary Care Provider [...] patient's age to complete this topic Insurance [facility] FULL
--- OUTSIDE RECORDS SUMMARY | 2024-12-04 12:31 | XMS_ITS | Clinical Summary ---
Author Organization [facility] Address [address] [place] [address] Care Team Providers Care Social Media Marketing Manager Name Role Phone Unavailable Primary Care Provider [...] Description 10/20/2024 1:00 PM EST Office Visit [facility] [address] [place] [address] Brett Oliver DDS [...] Health Maintenance Due Date Last Done Comments Anxiety Screening 2002 Hepatitis C Screening 2002 Tobacco Screening 2002 Imm-Varicella (1 of 2 - 13+ 2-dose series) 2015 HIV Screening 2017 Imm-HPV (1 - Male 3-dose series) 2017 Hypertension Screening (#1) 2020 Imm-DTaP/Tdap/Td (1 - Tdap) 2021 Imm-Hepatitis B (1 of 3 - 19+ 3-dose series) [id number] ( - season) 2024 Imm-Influenza (#1) 2024 Alcohol [...] Final Result from Last 3 Months Insurance [place] DENT[place] [facility]
== END 2024-12-04 11:16 | disposition home or self-care (01) ==
LOC: HO.HOS 10:50
PROVIDERS: PCP Internal Medicine; Visit Provider Orthopaedic Surgery
DX: M95.8 Other specified acquired deformities of musculoskeletal system (principal)
CPT/HCPCS: 99024

== ENCOUNTER → 2024-12-04 10:49 | Outpatient (BNVA) | payer OTHER, SELFPAY | PROVIDERS: PCP Internal Medicine; Visit Provider Orthopaedic Surgery | DX: Z47.89 Encounter for other orthopedic aftercare (principal); M95.8 Other specified acquired deformities of musculoskeletal system; Z98.890 Other specified postprocedural states | CPT/HCPCS: 99212 ==

== ENCOUNTER 2024-12-16 12:00 | Outpatient (RCR) | payer OTHER, SELFPAY ==
--- NOTE | 2024-10-22 13:59 | MHC.PT.EP ---
[facility] [place] Office [place] Office [place] [facility] [address] Betsy Mcgrath [address] [phone] F: [phone] F: [phone] F: [phone] F: [phone] Physical Therapy Plan of Care Date of Evaluation: 10/22/24 Date of Surgery: 09/30/24 Diagnosis: s/p L femoral condyle xenograft 09/30/24 (RL) Assessment: pt is a 24 y/o male presenting to physical therapy w/ referring diagnosis of M95.8 other specified acquired deformities of musculoskeletal system. pt underwent L femoral condyle xenograft implantation on 09/30/24. Impairments include pain, decreased range of motion, decreased strength, impaired functional mobility, impaired postural awareness, and altered ambulation mechanics. pt is a good candidate for skilled PT due to age, potential remediation of impairments, typical disease/condition progression and prognosis, comorbidities, and motivation. pt would benefit from skilled PT intervention to provide a tailored strengthening and stretching exercise program, functional training, gait training, postural re-training, neuromuscular re-education, modalities as needed for pain, equipment safety demonstration. Frequency and Duration: The patient will be seen 2x/wk for 8 wks Short Term Goals: pt will be I w/ HEP to promote self-management of condition. pt will improve L knee extension to 0* to promote ease in heel strike for progression to partial weight bearing. Senior Care Goals: pt will improve L quad strength to at least 4+/5 to promote ease in stair navigation to access his apartment. pt will report <3/10 knee pain w/ ambulation >2600' to promote return to community ambulation w/o AD. Treatment Plan: Modalities to reduce pain, spasms and effusion. Manual therapy to restore motion and function. Therapeutic exercise to improve strength and flexibility. Neuromuscular re-education for posture and balance. Therapeutic activities to return to functional activities of daily living. Electronically signed by: Karis Vanegas PT, DPT Please sign and return to therapist. Thank you for your referral.
--- NOTE | 2025-01-12 15:16 | MHC.PT.DC ---
[facility] [place] Office [place] [facility] [place] Office [address] Betsy Mcgrath [address] [phone] F: [phone] F: [phone] F: [phone] F: [phone] Physical Therapy Discharge Report Diagnosis: s/p L femoral condyle xenograft 09/30/24 (RL) Date of Surgery: 09/30/24 Date of Evaluation: 10/22/24 Date of Discharge: 01/12/25 Treatments to Date: 15 Cancellations to Date: 1 No Shows to Date: 0 Discharge Status: Improved Function Independent with HEP Discharge Summary: The patient overall has made excellent progress regarding his post-operative recovery. He has full rang of motion and excellent strength of the lower extremity. He was progressed to a light plyometric program. At this time, he feels no limitations in his daily or recreational activities in respect to the knee. He is discharged from this physical therapy plan of care. Electronically signed by: Karis Vanegas PT, DPT Please sign and return to therapist. Thank you for your referral.
== END 2025-01-12 15:16 | disposition home or self-care (01) ==
LOC: HO.PT 12:00
PROVIDERS: PCP Internal Medicine; Visit Provider Physician Assistant
DX: M95.8 Other specified acquired deformities of musculoskeletal system (principal); Z98.890 Other specified postprocedural states
CPT/HCPCS: 97110; 97112; 97116; 97161; 97164; 97530

== ENCOUNTER 2025-03-15 14:10 | Outpatient (AMB) | payer OTHER, SELFPAY ==
--- NOTE | 2025-03-15 14:15 | A.OFFVIS_ITS ---
Vital Signs 03/15/25 14:23 Height 5 ft 8 in Weight 190 lb BMI 28.9 Intake Visit Reasons: OV LT osteochondral allograft 09/30/24 NE Intake Note: Jennie is a 24 year old male who presents today for a follow up appointment s/p left knee osteochondral allograft 09/30/24 NE. At this time he has returned to work with no heavy lifting. 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 He has pain with prolong walking and standing. Allergies No Known Allergies Allergy (Verified 03/15/25 14:22) HPI HPI OV LT osteochondral allograft 09/30/24 NE: Details: Jennie is a 24 year old male who presents today for a follow up appointment s/p left knee osteochondral allograft 09/30/24 NE. At this time he has returned to work with no heavy lifting. 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 He has pain with prolong walking and standing. 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 Surgical History H/O left knee surgery History of umbilical hernia repair Family History Other Family history unknown Social History Household Members: Family Housing: Apartment Alcohol intake: never Patient Tobacco Use Status: Never used Tobacco e-Cigarette/Vaping Use: Never Used Substance Use Type: Marijuana service: No Current occupational status: unemployed Current occupation: right hand dominant//[employer] Gender identity: Male Cognitive needs: No Hearing needs: No Vision needs: No Physical Exam Vital Signs: BMI result Body Mass Index 28.9 Extrem Other: no effusion full ROM inc c/d/i Assessment & Plan Assessment & Plan (1) Osteochondral defect of femoral condyle: Code(s): M95.8 - Other specified acquired deformities of musculoskeletal system Category: Medical Plan: Doing well s/p left knee. No pain and doing well with work. Continue activity as tolerated. F/u PRN Coding Level of Care Code Est Pt Level 3 (07906) Diagnoses Osteochondral defect of femoral condyle M95.8
[2025-03-15 14:23] VITALS: BMI 28.9
--- OUTSIDE RECORDS SUMMARY | 2025-03-15 15:31 | XMS_ITS | Clinical Summary ---
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
--- OUTSIDE RECORDS SUMMARY | 2025-03-15 15:31 | XMS_ITS | Clinical Summary ---
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 Role Phone Unavailable Primary Care Provider [...] 81 10/03/2023 10:29 AM EST Temperature 36.6 C (97.8 F) 10/03/2023 10:29 AM EST Respiratory Rate 16 10/03/2023 10:29 AM EST [...] 2002 HIV Screening 2002 SDOH Screening 2002 Disability Screening 2002 Alcohol/Substance Use Screening 2014 Family Planning (PISQ) 2017 HPV Vaccines (1 - Male 3-dos e series) 2017 Meningococcal B Vaccine (1 o f 2 - Standard) 2018 Hepatitis C Screening 2020 DTaP/Tdap/Td Vaccines (1 - Tdap) 2021 Hepatitis B Vaccines (1 of 3 - 19+ 3-dose series) 2021 COVID-19 Vaccine (1 - 2023-2 5 season) 2024 Tobacco Screening 10/03/2024 10/03/2023 Influenza Vaccine (#1) 2025 Zoster Vaccines (1 of 2) 2052 RSV [...] Years) and At-Risk Patients (6 to 49) Years Aged Out No longer eligi ble based on patient's age to complete this topic RSV under 20 months Aged Out No longe r eligible based on patient's age to complete this topic Rotavirus Vaccines Aged Out No longer eligible based on patient's age to complete this topic [facility] [employer] [facility] FULL
== END 2025-03-15 15:09 | disposition home or self-care (01) ==
LOC: HO.HOS 14:10
PROVIDERS: PCP Internal Medicine; Visit Provider Orthopaedic Surgery
DX: M95.8 Other specified acquired deformities of musculoskeletal system (principal)
CPT/HCPCS: 99212

== ENCOUNTER → 2025-03-15 14:10 | Outpatient (BNVA) | payer OTHER, SELFPAY | PROVIDERS: PCP Internal Medicine; Visit Provider Orthopaedic Surgery | DX: M95.8 Other specified acquired deformities of musculoskeletal system (principal); Z98.890 Other specified postprocedural states | CPT/HCPCS: 99212 ==